=== PATIENT | male | born 1960 | race Caucasian/White ===

== ENCOUNTER 2016-12-23 13:18 | Observation (INO) | payer OTHER ==
[~2016-12-23] VITALS: Ht 162.6 cm; Wt 62.1 kg
[2016-12-23 13:19] VITALS: BP 113/86; PULSE 88; RESP 20; TEMP 98; O2SAT 98
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
[2016-12-23] MEDS ORDERED: MEDR4PAK PO (14:30)
[2016-12-23] MEDS ORDERED: KETOROLAC TROMETHAMINE 60 MG/2 ML (IM) VIAL IM ONE (14:30)
[2016-12-23] MEDS ORDERED: SODIUM CHLOR 0.9% 1000 ML INJ 1,000 ML IV ONE (14:45)
[2016-12-23] MEDS ORDERED: DEXAMETHASONE SOD PHOS 4 MG/ML VIAL IV PUSH ONE (14:45)
[2016-12-23] MEDS ORDERED: ONDANSETRON HCL 4 MG/2 ML VIAL IV PUSH ONE (14:45)
[2016-12-23] MEDS ORDERED: HYDROmorphone HCL PF 1 MG/ML VIAL IV PUSH ONE (14:45)
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
[2016-12-23] MEDS: SODIUM CHLOR 0.9% 1000 ML INJ 1,000 ML IV SCH (15:28)
[2016-12-23] MEDS ORDERED: NALOXONE HCL 0.4 MG/ML AMP IV PRN (15:30)
[2016-12-23] MEDS ORDERED: SODIUM CHLORIDE 0.9% FLUSH 5 ML FLUSH FLUSH PRN (15:30)
[2016-12-23 15:51] LABS: AUTOMATED NEUTROPHIL # 7.1 TH/MM3 (1.8-7.7); BASOPHIL # 0.1 TH/MM3 (0-0.2); BASOPHIL % 0.7 % (0.0-2.0); EOSINOPHIL # 0.2 TH/MM3 (0-0.4); EOSINOPHIL % 2.2 % (0.0-4.0); HEMATOCRIT 43.7 % (39.0-51.0); HEMO FLAGS DIFF FINAL; LYMPH % 26.8 % (9.0-44.0); MEAN CELL VOLUME 95.7 FL (80.0-100.0); MEAN CORPUSCULAR HEMOGLOBIN 32.5 PG (27.0-34.0); MEAN CORPUSCULAR HGB CONC 33.9 % (32.0-36.0); MONO % 7.9 % (0.0-8.0); NEUT % 62.4 % (16.0-70.0); PLATELET COUNT 221 TH/MM3 (150-450); RED BLOOD COUNT 4.56 MIL/MM3 (4.50-5.90); WHITE BLOOD COUNT 11.3 TH/MM3 (4.0-11.0)
[2016-12-23] MEDS ORDERED: oxyCODONE HCL 20 MG CONTROLLED RELEASE TAB PO ONE (16:00)
[2016-12-23 16:01] LABS: APTT (PATIENT) 30.1 SEC (24.3-30.1); INTERNATIONAL NORMALIZED RATIO 0.9 RATIO
--- NOTE | 2016-12-23 16:09 | RADRPT ---
EXAM DATE/TIME: 12/23/2016 15:23 [facility] COMPARISON: No previous studies available for comparison. INDICATIONS : Evaluate for pneumonia, pneumothorax or communicable disease. being admitted for back surgery. MEDICAL HISTORY : Chronic obstructive pulmonary disease. SURGICAL HISTORY : None. ENCOUNTER: Initial ACUITY: 1 day PAIN SCORE: 0/10 LOCATION: Bilateral chest FINDINGS: A single view of the chest demonstrates the lungs to be symmetrically aerated without evidence of mas s, infiltrate or effusion. The cardiomediastinal contours are unremarkable. Osseous structures are intact. CONCLUSION: No acute abnormality demonstrated. Eddi Chavez MD on December 23, 2016 at 16:07 Board Certified Radiologist. This report was verified electronically.
[2016-12-23 16:14] LABS: BICARBONATE 28.5 MEQ/L (21.0-32.0); POTASSIUM 4.5 MEQ/L (3.5-5.1)
[2016-12-23] MEDS ORDERED: PERC10TA27 PO (18:15)
[2016-12-23] MEDS ORDERED: OXYC20TA17 PO (18:15)
[2016-12-23 18:24] VITALS: BP 118/82
[2016-12-23] MEDS ORDERED: IPRA17I INH (18:32)
[2016-12-23] MEDS ORDERED: FLUT1INH7 INH (18:32)
[2016-12-23] MEDS ORDERED: UMEC1INH INH (18:32)
[2016-12-23] MEDS ORDERED: VENTAER INH (18:32)
[2016-12-23] MEDS ORDERED: BUSP10TA PO (18:32)
[2016-12-23 18:50] VITALS: BP 122/72; PULSE 78; RESP 16; TEMP 98.4; O2SAT 99
[2016-12-23 20:00] VITALS: BP 137/86; PULSE 71; RESP 18; TEMP 98.6; O2SAT 97
[2016-12-23] MEDS: oxyCODONE HCL 20 MG CONTROLLED RELEASE TAB PO SCH (20:15)
[2016-12-23] MEDS: HYDROmorphone HCL PF 1 MG/ML VIAL IV PUSH PRN (21:53)
[2016-12-23] MEDS: SODIUM CHLORIDE 0.9% FLUSH 5 ML FLUSH FLUSH SCH (21:54)
[2016-12-23] MEDS ORDERED: RESP: ALBUTEROL 2.5 MG/IPRATROPIUM 0.5 MG NEB (PRN) NEB (23:00)
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
[2016-12-23] MEDS: oxyCODONE/ACETAMINOPHEN 10 MG/325 MG TAB PO PRN (23:42)
[2016-12-24] VITALS: BP 106/61; PULSE 66; RESP 16; TEMP 97.9; O2SAT 96
[2016-12-24] MEDS: SODIUM CHLOR 0.9% 1000 ML INJ 1,000 ML IV SCH ×2 (01:30→08:30)
[2016-12-24] MEDS: HYDROmorphone HCL PF 1 MG/ML VIAL IV PUSH PRN ×5 (02:01→19:55)
[2016-12-24] MEDS: oxyCODONE/ACETAMINOPHEN 10 MG/325 MG TAB PO PRN ×4 (03:18→16:26)
[2016-12-24 04:00] VITALS: BP 113/70; PULSE 68; RESP 16; TEMP 97.4; O2SAT 94
[2016-12-24 07:56] LABS: AUTOMATED NEUTROPHIL # 10.6 TH/MM3 (1.8-7.7); BASOPHIL # 0.1 TH/MM3 (0-0.2); BASOPHIL % 0.4 % (0.0-2.0); HEMATOCRIT 39.8 % (39.0-51.0); HEMO FLAGS DIFF FINAL; LYMPH % 14.2 % (9.0-44.0); LYMPHOCYTE # 1.8 TH/MM3 (1.0-4.8); MEAN CELL VOLUME 94.7 FL (80.0-100.0); MEAN CORPUSCULAR HEMOGLOBIN 32.1 PG (27.0-34.0); MEAN CORPUSCULAR HGB CONC 33.9 % (32.0-36.0); MONO % 4.2 % (0.0-8.0); NEUT % 81.2 % (16.0-70.0); PLATELET COUNT 206 TH/MM3 (150-450); RED CELL DISTRIBUTION WIDTH 14.5 % (11.6-17.2)
[2016-12-24 08:00] VITALS: BP 110/63; PULSE 78; RESP 20; TEMP 97.7; O2SAT 94
[2016-12-24] MEDS: SODIUM CHLORIDE 0.9% FLUSH 5 ML FLUSH FLUSH SCH ×2 (08:25→19:54)
[2016-12-24] MEDS: oxyCODONE HCL 20 MG CONTROLLED RELEASE TAB PO SCH (08:26)
[2016-12-24] MEDS: DEXAMETHASONE SOD PHOS 4 MG/ML VIAL IV PUSH SCH ×2 (08:26→19:54)
[2016-12-24 08:40] LABS: BICARBONATE 24.9 MEQ/L (21.0-32.0); POTASSIUM 4.2 MEQ/L (3.5-5.1)
[2016-12-24] MEDS ORDERED: GADODIAMIDE PF 287 MG/ML 5 ML VIAL (for RAD MRI) IV ONE (09:39)
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
--- NOTE | 2016-12-24 10:10 | EKG ---
Date Performed: 12/23/2016 Time Performed: 14:44:15 PTAGE: 56 years EKG: Sinus rhythm POSSIBLE RIGHT VENTRICULAR CONDUCTION DELAY BORDERLINE ECG NO PREVIOUS TRACING DOCTOR: Drake Pickens Interpretating Date/Time 12/24/2016 10:08:09
--- NOTE | 2016-12-24 11:05 | HHI.PR ---
Subjective Remarks pt reports pain still severe in back and legs. no chnage in leg weakness. s/p MRI. good po intake, no CP or sob Objective Vital Signs Date Time Temp Pulse Resp B/P Pulse Ox O2 Delivery O2 Flow Rate FiO2 12/24/16 08:00 97.7 78 20 110/63 94 12/24/16 06:41 16 12/24/16 04:23 18 12/24/16 04:00 97.4 68 16 113/70 94 12/24/16 00:00 97.9 66 16 106/61 96 12/23/16 21:51 16 12/23/16 20:00 98.6 71 18 137/86 97 12/23/16 18:50 98.4 78 16 122/72 99 Room Air 12/23/16 18:24 78 16 118/82 99 12/23/16 13:19 98.0 88 20 113/86 98 Room Air I/O 12/23/16 12/23/16 12/23/16 12/24/16 12/24/16 12/24/16 07:00 15:00 23:00 07:00 15:00 23:00 Intake Total 1200 ml Balance 1200 ml Intake Oral 1200 ml # Voids 1 4 Result Diagram: 12/24/1661212/24/16612 Objective Remarks GENERAL: sitting up in bed. appears in pain. aaox3 SKIN: Warm and dry. HEAD: Normocephalic. EYES: No scleral icterus. No injection or drainage. NECK: Supple, trachea midline. No JVD CARDIOVASCULAR: Regular rate and rhythm without murmurs, gallops, or rubs. RESPIRATORY: Breath sounds equal bilaterally. No accessory muscle use. GASTROINTESTINAL: Abdomen soft, non-tender, nondistended. MUSCULOSKELETAL: No cyanosis, or edema. neuro- pt moves BL LE BACK: Nontender without obvious deformity. No CVA tenderness. A/P Assessment and Plan //Acute on chronic low back pain with symptoms of bilateral radiculopathy. -Narcotics for pain control. Dexamethasone scheduled. Appreciate neurosurgery assistance. 12/24 - f/u neurosurgery reccs. mri pending. incr dilaudid prn and oxycontin //leukocytosis - stress, steroids. no other indication of infection. cont to monitor //COPD. No acute issues. cont Duonebs as necessary. //Tobaccoism. Cessation advised //Prophylaxis. SCDs. As per surgical service. Discharge Planning cont pain control -pending neuro Benjie Gunter MD Dec 24, 2016 11:05
[2016-12-24 12:00] VITALS: BP 117/73; PULSE 72; RESP 20; TEMP 98.2; O2SAT 95
[2016-12-24 16:00] VITALS: BP 122/69; PULSE 55; RESP 18; TEMP 97.8; O2SAT 96
--- NOTE | 2016-12-24 16:15 | RADRPT ---
EXAM DATE/TIME: 12/24/2016 15:13 [facility] COMPARISON: No previous studies available for comparison. INDICATIONS : Assess instrumentation/fusion. RADIATION DOSE: 35.86 CTDIvol (mGy) MEDICAL HISTORY : Chronic obstructive pulmonary disease. SURGICAL HISTORY : Lumbar spine surgery. ENCOUNTER: Subsequent ACUITY: 1 week PAIN SCALE: 4/10 LOCATION: [facility] TECHNIQUE: Volumetric scanning of the lumbar spine was performed. Multiplanar reconstructions in the sagittal, coronal and oblique axial planes were performed. Using automated exposure control and adjustment of the mA and/or kV according to patient size, radiation dose was kept as low as reasonably achievable t o obtain optimal diagnostic quality images. FINDINGS: There are laminectomies and unroofing of the posterior elements at L2 and L3. There is focally advanc ed degenerative disc disease at L2-3 and moderate degenerative change at L3-4-5. Grade 1 retrolisthes is of L2 on L3 and L3 on L4 present. No acute fracture. At L1-2 there is a broad-based disc protrusion without significant central canal stenosis. At L2-3 there is posterior osteophytic ridging are resolving mild canal and foraminal stenosis bilate rally. At L3-4 there is an extruded disc fragment in the right lateral recess resulting in severe right late ral recess stenosis created At L4-5 there is a posterior disc osteophyte complex with left-sided neural foraminal stenosis. No si gnificant central canal stenosis. At L5-S1 there is a disc bulge without canal or foraminal stenosis. CONCLUSION: 1. Postop changes as above with unroofing of the posterior elements at L2 and L3. Grade 1 retrolisthe sis of L2 on L3 on L4. 2. Advanced degenerative disc disease L2-3 and moderate degenerative change at L3-4 and L4-5. 3. Extruded disc fragment effacing the right lateral recess at L3-4 with likely impingement on the nerve roots. Tremaine Sandy MD on December 24, 2016 at 16:06 Board Certified Radiologist. This report was verified electronically.
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
[2016-12-24] MEDS: oxyCODONE HCL 10 MG CONTROLLED RELEASE TAB PO SCH (19:55)
[2016-12-24 20:00] VITALS: BP 119/78; PULSE 63; RESP 17; TEMP 97.5; O2SAT 93
[2016-12-25] VITALS: BP 108/65; PULSE 64; RESP 18; TEMP 98.2; O2SAT 95
[2016-12-25] MEDS: oxyCODONE/ACETAMINOPHEN 10 MG/325 MG TAB PO PRN ×3 (01:12→09:37)
[2016-12-25] MEDS: HYDROmorphone HCL PF 1 MG/ML VIAL IV PUSH PRN ×3 (01:13→10:46)
[2016-12-25 04:00] VITALS: BP 119/69; PULSE 65; RESP 19; TEMP 98.2; O2SAT 95
[2016-12-25 08:00] VITALS: BP 120/73; PULSE 76; RESP 20; TEMP 96.4; O2SAT 97
[2016-12-25] MEDS: oxyCODONE HCL 10 MG CONTROLLED RELEASE TAB PO SCH (09:37)
[2016-12-25] MEDS: DEXAMETHASONE SOD PHOS 4 MG/ML VIAL IV PUSH SCH (09:38)
[2016-12-25] MEDS: SODIUM CHLORIDE 0.9% FLUSH 5 ML FLUSH FLUSH SCH (09:38)
[2016-12-25] MEDS ORDERED: OXYC20TA17 PO (10:27)
[2016-12-25] MEDS ORDERED: PERC10TA27 PO (10:27)
[2016-12-25] MEDS ORDERED: PANT40TA3 PO (10:27)
[2016-12-25] MEDS ORDERED: NAPR1TAB34 PO (10:27)
[2016-12-25] MEDS ORDERED: GABA100C4 PO (10:27)
[2016-12-25] MEDS ORDERED: GETGO ROLLING W1 MI1 (10:28)
[2016-12-25] MEDS ORDERED: PANTOPRAZOLE SOD 40 MG DELAYED RELEASE TAB PO ONE (10:30)
[2016-12-25] MEDS ORDERED: oxyCODONE HCL 10 MG CONTROLLED RELEASE TAB PO ONE (11:00)
[2016-12-25] MEDS ORDERED: GABAPENTIN 100 MG CAP PO SCH (13:00)
[2016-12-25] MEDS ORDERED: oxyCODONE HCL 10 MG CONTROLLED RELEASE TAB PO SCH (21:00)
[2016-12-26] MEDS ORDERED: PANTOPRAZOLE SOD 40 MG DELAYED RELEASE TAB PO SCH (09:00)
--- NOTE | 2017-01-02 18:36 | HHI.PR ---
Subjective Remarks date of service 12/25/16. Patient says he is feeling better. Denies any chest pain or shortness of breath. Imaging reviewed which does not show cervical spinal stenosis. Objective Objective Remarks GENERAL: sitting up in bed. appears in pain. aaox3. Exam unchanged from day prior. SKIN: Warm and dry. HEAD: Normocephalic. EYES: No scleral icterus. No injection or drainage. NECK: Supple, trachea midline. No JVD CARDIOVASCULAR: Regular rate and rhythm without murmurs, gallops, or rubs. RESPIRATORY: Breath sounds equal bilaterally. No accessory muscle use. GASTROINTESTINAL: Abdomen soft, non-tender, nondistended. MUSCULOSKELETAL: No cyanosis, or edema. neuro- pt moves BL LE BACK: Nontender without obvious deformity. No CVA tenderness. A/P Assessment and Plan //Acute on chronic low back pain with symptoms of bilateral radiculopathy. -Narcotics for pain control. Dexamethasone scheduled. Appreciate neurosurgery assistance. 12/24 - f/u neurosurgery reccs. mri pending. incr dilaudid prn and oxycontin -12/25. Discussed with neurosurgery. Imaging does not show spinal stenosis. Follow-up with neurosurgery as outpatient. //leukocytosis - stress, steroids. no other indication of infection. cont to monitor //COPD. No acute issues. cont Duonebs as necessary. //Tobaccoism. Cessation advised //Prophylaxis. SCDs. As per surgical service. Discharge Planning cont pain control -patient will follow up with neurosurgery as outpatient. Benjie Nichols MD Jan 02, 2017 18:36
[2017-02-16] MEDS ORDERED: ZANA4CAP PO (11:00)
[2017-02-16] MEDS ORDERED: GABA600T PO (11:00)
[2017-02-17] MEDS ORDERED: OXYC1TAB36 PO (09:36)
== END 2016-12-25 12:36 | disposition home or self-care (01) ==
LOC: NEPB 13:18 → NEDA 15:20 → HOCA 19:55
PROVIDERS: ADMIT Internal Medicine; ATTEND Internal Medicine
DX: M54.16 Radiculopathy, lumbar region (principal); J44.9 Chronic obstructive pulmonary disease, unspecified; D72.829 Elevated white blood cell count, unspecified; F17.200 Nicotine dependence, unspecified, uncomplicated; Z98.1 Arthrodesis status; Z88.5 Allergy status to narcotic agent
CPT/HCPCS: 71010; 72131; 72141; 72146; 72158; 80048; 85025; 85610; 85730; 86850; 86900; 86901; 93005; 96374; 96375; A9579; G0378; G8987-GP; G8988-GP; J1100; J1170; J2405; J7030

== ENCOUNTER 2016-12-27 15:22 | Emergency (ER) | payer OTHER ==
[~2016-12-27] VITALS: Ht 162.6 cm; Wt 62.0 kg
[~2016-12-27 15:22] MED LIST: BUSP10TA PO; FLUT1INH7 INH; GABA100C4 PO; GETGO ROLLING W1 MI1; IPRA17I INH; NAPR1TAB34 PO; OXYC20TA17 PO; PANT40TA3 PO; PERC10TA27 PO; UMEC1INH INH; VENTAER INH
[2016-12-27 15:29] VITALS: BP 141/85; PULSE 87; RESP 16; TEMP 98; O2SAT 98
[2016-12-27] MEDS ORDERED: HYDROmorphone HCL PF 1 MG/ML VIAL IV PUSH ONE (16:45)
[2016-12-27] MEDS ORDERED: KETOROLAC TROMETHAMINE 30 MG/ML (IVP) VIAL IV PUSH ONE (16:45)
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
[2016-12-27] MEDS ORDERED: HYDROmorphone HCL PF 1 MG/ML VIAL IM ONE (17:15)
[2016-12-27] MEDS ORDERED: KETOROLAC TROMETHAMINE 60 MG/2 ML (IM) VIAL IM ONE (17:15)
[2017-02-16] MEDS ORDERED: GABA600T PO (11:00)
[2017-02-16] MEDS ORDERED: ZANA4CAP PO (11:00)
[2017-02-17] MEDS ORDERED: OXYC1TAB36 PO (09:36)
== END 2016-12-27 17:27 | disposition home or self-care (01) ==
LOC: NEPC 15:22
DX: M54.5 Low back pain (principal); J44.9 Chronic obstructive pulmonary disease, unspecified; Z72.0 Tobacco use
CPT/HCPCS: 96372; 99283; J1170; J1885

== ENCOUNTER 2017-01-14 15:06 | Emergency (ER) | payer OTHER ==
[~2017-01-14] VITALS: Ht 157.5 cm; Wt 65.0 kg
[2017-01-14 15:07] VITALS: BP 115/81; PULSE 95; RESP 14; TEMP 97.9; O2SAT 93
--- NOTE | 2017-01-14 15:35 | PD ---
Physical Exam Date Seen by Provider: Jan 14, 2017 Time Seen by Provider: 15:28 Narrative Patient seen in triage with complaints of worsening low back pain with left sided sciatica. Patient is scheduled for surgery with Dr. Molina. Patient states pain 07/27. Patient recently discharged by his Pain clinic Doctor. Patient denies Bowel or bladder issues. denies worsening weakness in the left leg. Vital Signs Stable. Patient awaiting room placement. Data Data Last Documented VS Vital Signs Date Time Temp Pulse Resp B/P Pulse Ox O2 Delivery O2 Flow Rate FiO2 01/14/17 15:07 97.9 95 14 115/81 93 MDM Medical Record Reviewed: Yes Supervised Visit with DESTINEE: Yes Condition: Stable Richard Inman Jan 14, 2017 15:35
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
[2017-02-16] MEDS ORDERED: ZANA4CAP PO (11:00)
[2017-02-16] MEDS ORDERED: GABA600T PO (11:00)
[2017-02-17] MEDS ORDERED: OXYC1TAB36 PO (09:36)
== END 2017-01-14 17:56 | disposition home or self-care (01) ==
LOC: NETRI 15:06
DX: M54.5 Low back pain (principal)
CPT/HCPCS: 99282

== ENCOUNTER 2017-01-18 11:43 | Inpatient (IN) | payer OTHER ==
[~2017-01-18] VITALS: Ht 160 cm; Wt 65.3 kg
[~2017-01-18 11:43] MED LIST changes: -ADVA500A INH; -GABA600T PO; -IPRA17I INH; -OXYC1TAB36 PO; -PANT40TA3 PO; -PERC5TAB12 PO; -VENTAER INH; -WALKER WHEELS/F1 MIS; -ZANA4CAP PO
[2017-01-18] MEDS ORDERED: ADVA500A INH (11:59)
[2017-01-20] MEDS ORDERED: GELFOAM SIZE 100 ONE (07:26)
[2017-01-20] MEDS ORDERED: VANCOMYCIN HCL 1000 MG VIAL ONE (07:26)
[2017-01-20] MEDS ORDERED: ceFAZolin 2 GM PREMIX 50 ML ONE ×2 (07:26→13:14)
[2017-01-20] MEDS ORDERED: THROMBIN (TOPICAL) 5,000 UNIT VIAL ONE (07:26)
[2017-01-20] MEDS ORDERED: BUPIVACAINE/EPINEPHRINE 0.5% PF 30 ML VIAL ONE (07:26)
[2017-01-20] MEDS ORDERED: GENTAMICIN SULFATE 80 MG/2 ML VIAL ONE (07:27)
[2017-01-20] MEDS ORDERED: SODIUM CHLOR 0.9% 250 ML INJ 250 ML ONE (07:27)
[2017-01-20 07:30] VITALS: BP 113/77; PULSE 75; RESP 18; TEMP 98.3; O2SAT 97
[2017-01-20] MEDS ORDERED: VANCOMYCIN HCL 1000 MG ON-CALL/NS 250 ML IV SCH ×2 (07:30)
[2017-01-20] MEDS ORDERED: LACTATED RINGER'S 1000 ML IV PRN (07:30)
[2017-01-20] MEDS ORDERED: METOPROLOL TARTRATE 25 MG TAB PO PRN (07:30)
[2017-01-20] MEDS: SODIUM CHLOR 0.9% 1000 ML INJ 1,000 ML IV SCH (07:30)
[2017-01-20] MEDS ORDERED: SODIUM CHLORID 0.9% 500 ML IV PRN (07:30)
[2017-01-20] MEDS ORDERED: POVIDONE IODINE 5% (ANTISEPSIS KIT) 4 APPLICATIONS EACH NARE PRN (07:30)
[2017-01-20] MEDS ORDERED: INSULIN HUMAN REGULAR 1,000 UNITS/10 ML VIAL SQ PRN (07:30)
[2017-01-20] MEDS ORDERED: CHLORHEXIDINE GLUCONATE 2 % 1 PACK (2 CLOTHS) TOPICAL PRN (07:30)
[2017-01-20] MEDS ORDERED: DEXAMETHASONE SOD PHOS 4 MG/ML VIAL ONE (08:24)
[2017-01-20] MEDS ORDERED: MIDAZOLAM HCL 2 MG/2 ML VIAL ONE (08:24)
[2017-01-20] MEDS ORDERED: ACETAMINOPHEN 1000 MG/100 ML VIAL IV ONE (08:41)
[2017-01-20] MEDS ORDERED: ARTIFICIAL TEARS OPTH OINT 3.5 APPLIC/3.5 GM TUBO ONE (08:41)
[2017-01-20] MEDS ORDERED: fentaNYL CITRATE 250 MCG/5 ML AMP ONE ×2 (08:42→14:28)
[2017-01-20] MEDS ORDERED: ONDANSETRON HCL 4 MG/2 ML VIAL IV PUSH ONE (12:00)
[2017-01-20] MEDS ORDERED: PROPOFOL 200 MG/20 ML AMP IV ONE (12:00)
[2017-01-20] MEDS ORDERED: SODIUM CHLOR 0.9% 250 ML INJ 250 ML IV ONE (12:00)
[2017-01-20] MEDS ORDERED: ePHEDrine/NS 25 MG/5 ML SYR IV ONE (12:00)
[2017-01-20] MEDS ORDERED: PHENYLEPHRINE HCL 10 MG/ML VIAL IV ONE ×2 (12:00)
[2017-01-20] MEDS ORDERED: LACTATED RINGER'S 1000 ML INJ 2,000 ML IV ONE (12:00)
[2017-01-20] MEDS ORDERED: PHENYLEPH/NS 1000 MCG/10 ML SYR IV ONE (12:00)
[2017-01-20] MEDS: NS + KCL 20 MEQ INJ 1,000 ML IV SCH (14:55)
[2017-01-20] MEDS ORDERED: DO NOT ADM ANY ANTICOAGULANT DRUGS PRN (14:59)
[2017-01-20] MEDS: SODIUM CHLORIDE 0.9% FLUSH 5 ML FLUSH IVF SCH ×2 (15:00→20:52)
[2017-01-20] MEDS ORDERED: cloNIDine HCL 0.1 MG TAB PO/NG PRN (15:00)
[2017-01-20] MEDS: PANTOPRAZOLE SODIUM 40 MG VIAL IVP SCH (15:00)
[2017-01-20] MEDS ORDERED: ACETAMINOPHEN 325 MG TAB PO PRN (15:00)
[2017-01-20] MEDS: DOCUSATE SODIUM 100 MG CAP PO SCH ×2 (15:00→20:51)
[2017-01-20] MEDS ORDERED: MENTHOL LOZENGE BUCCAL PRN (15:00)
[2017-01-20] MEDS ORDERED: SODIUM CHLORIDE 0.9% FLUSH 5 ML FLUSH IVF PRN (15:00)
[2017-01-20] MEDS ORDERED: RESP: ALBUTEROL 2.5 MG/3 ML NEB (PRN) INH (15:00)
[2017-01-20] MEDS ORDERED: NALOXONE HCL 0.4 MG/ML AMP IV PRN (15:00)
[2017-01-20] MEDS ORDERED: ONDANSETRON HCL 4 MG/2 ML VIAL IV PRN (15:00)
[2017-01-20] MEDS ORDERED: *MEPERIDINE 25 MG INJ VIAL PERIprocedural Use ONLY ONE (15:21)
[2017-01-20] MEDS ORDERED: *HYDROmorphone PF 1 MG VIAL PERIprocedural Use ONLY ONE ×3 (15:32→16:08)
[2017-01-20] MEDS: HYDROmorphone HCL PCA 6 MG/30 ML IV SCH ×2 (15:59→22:23)
[2017-01-20] MEDS ORDERED: *hydrOXYzine 25 MG VIAL PERIprocedural Use ONLY IM ONE (16:18)
--- NOTE | 2017-01-20 17:07 | PD.OP ---
Operative Report Date of Surgery: Jan 20, 2017 Preoperative Diagnosis: post laminectomy spondylolisthesis Postoperative Diagnosis: post laminectomy spondylolisthesis Procedure: Redo L3-L4 laminectomy, interbody arthrodhesis using PEEK cage and autologous bone graft, L4-5 instrumental fixation using transpedicular screws and rods, L3- 4 posterolateral fusion using autologous bone graft and rods. Microsurgical dissection Surgeon: Darrick Molina Propellant Charge Loader(s): Carol Trujillo Operation and Findings: INDICATIONS FOR THE SURGICAL PROCEDURE Mr. Jacome is a 56-year-old man with a history of a prior L3-L4 bilateral laminectomy and discectomy, who developed chronic low back pain and spondylolisthesis at this level. He presented with intractable mechanical back pain and angella evidence of L4 bilateral lower extremity radiculopathy. He failed maximum nonsurgical management including multiple modalities of conservative treatment as well as pain management interventions by an interventional pain specialist. A surgical decompression and arthrodhesis were indicated as a last resource. The [id number] details of the procedure, indications, alternatives, risks and potential complications were fully discussed with him. He fully understood. All the questions were answered. No guarantees were given. The patient voiced requesting the procedure and provided informed consents. The patient was offered the alternative of delaying the procedure and continuing with nonsurgical management. DETAILS OF THE SURGICAL PROCEDURE Prior to the procedure, the surgical incision was marked in the preoperative surgical holding room, and the procedure, risks, and potential complications revisited with the patient. Placement of electrodes for intraoperative neurophysiological monitoring was completed. The patient was taken to the operative room, and following induction of general anesthesia, endotracheal intubation was performed. A Buchanan catheter, bilateral REGGIE hose and sequential compression devices were placed and kept throughout the procedure. The patient was positioned prone, over a Jericho table over a Celio frame. All pressure in the preoperative surgical holding room points were carefully padded with eggcrate and gel mattress. The eyes were tapped shut after ointment was applied by the anesthesiologist to prevent corneal abrasion. A Fei hugger was placed over the expossed lower body to maintain control of the core body temperature. The electrophysiological team placed the needles and electrodes in their proper location and baseline SSEP's and motor evoked potentials were registered. The lumbar region was prepped and draped in the usual sterile fashion. The surgical procedure was performed in several steps as follow: SURGICAL APPROACH Once the patient was positioned, a localizing cross-table lateral x-ray was performed with a C-arm. Two paramedian small incisions were outlined on the skin approximately 3cm from the midline. The skin incisions were made with a # 10 blade. Small bleeders were controlled with the cautery. The dissection was then carried out into deeper planes and through the thoracolumbar fascia with a Bovie. The intermuscular septum was identified and the muscles were blunted dissected along the septum. The facets and transverse process of L3-L4 were exposed and the proper anatomical landmarks were identified. A microsurgical self-retaining retractor was placed on the incision, and a localizing lateralizing cross-table x-ray was performed with an instrument underneath a lamina of the lumbar spine. INSTRUMENTAL FIXATION At this point in the procedure, placement of bilateral transpedicular screws was necessary for stabilization of the spine. Initially, the entry point for the screw was selected anatomically at the junction of the facet, with the transverse process, and the pars interarticularis at L3-L4. This was started with a Giamshetti needle, followed by the use of an lundberg wire, and then a tap was used to create the threads for the screws. Finally bilateral transpedicular screws were carefully placed bilaterally at L3-L4 under fluoroscopic visualization. An appropriate purchase was achieved with all screws. The position of each screw was assessed anatomically with an AP, lateral , oblique Xrays. An intraoperative scan view of the spine was then performed using the iso-centric c-arm. Each screw was then assessed electrophysiologically stimulating each screw with a nerve stimulator. SURGICAL DECOMPRESSION There was significant mass effect with compression of the neural structures. In order to relieve neural compression, it was necessary to perform a decompressive laminectomy, with decompression of the spinal canal and bilateral lateral recesses. Note that the scope of such decompression was significantly more extensive than the minimal exposure necessary to perform an interbody fusion, as there was extreme facet arthropathy with near complete collapse of the disk spaces and severe stenosis cause by the hyperthrophic joint facets. At this point of the procedure the operative microscope was draped in the usual sterile fashion and brought to the field. The rest of the surgical procedure was performed using microdissection technique with the exception of the closure. The patient had a prior bilateral laminectomy at L3-L4. The margins of the previous laminectomy were expossed. Under the operating microscope, a decompressive laminectomy was carried out at L4-L5 as follow: given the previous laminectomy and severe scaring which was very attached to the dural sac , it was necessary to further drill the facet to allow propper expossure of the disk. The remaining laminae, base of the spinous processes and facets were carefully drilled exposing the ligamentum flavum. The facets were abnormal with instability. A mild disk protusion was seen. A near complete facetectomy was necessary with further mechanical instability. On the left side, the dura was not defined, and appear diffusely intake dated the scar tissue without any clear plane of dissection. The scar tissue and ligament were very adherent to the dural sac and during the dissection extreme care was taken. during the dissection, a CSF leak was noted. Due to the lack of planes I suspect that the patient had a CSF leak using his initial surgery. The dura was closed in a water tight fashion usinf 6-0 Prolene suture. The closure was reinforced at the end of the procedure using DuraSeal. The exiting nerve roots were identified, and a foraminotomy was performed with a Kerrison in their trajectory towards the neural foramen. Epidural veins located laterally to the dural sac were coagulated with the bipolar cautery, and then incised using microscissors. Gentle medial retraction of the dural sac allowed me to expose the disc space for the discectomy. Upon completion of the discectomy, an excellent decompression of the neural structures was achieved. Increased motion was noted with mechanical instability. INTERBODY ARTHRODHESIS In order to correct the narrowing of the disk space and maintain distraction of the space, and to achieve a solid interbody fusion, it was necessary the insertion of an interbody device into the disk space. Otherwise, the disk space would collapse, compromising the result of the surgical procedure. At this point of the procedure, the annulus fibrosus of the disk was carefully coagulated with a bipolar cautery and incised using an 11 bladed knife. Then, a microdiscectomy was carried out in a standard fashion using a combination of straight and up-biting pituitary forceps. A reverse angle curette was applied underneath the posterior longitudinal ligament, and used to push the disk fragments into the disk space, so they can be safely removed with a pituitary forceps. Once the discectomy was completed, it was necessary to decorticate the endplates, in order to eliminate the cartilaginous endplate and to expose healthy bone appropriate to perform the interbody fusion. The endplates at L3 and L4 were then thoroughly decorticated using increasing size bone thu and ring curets, eliminating the cartilaginous fragments from both, the superior and inferior endplates. A disk space distractor was applied to the pedicle screws and gentle distraction was applied. This maneuver was assisted by the use of a disk distractor. Increased motility was noted at the disk, which was consistent with instability due to facet arthropathy. Once a thorough preparation of the disk space was achieved, the disk space was irrigated with antibiotic solution, and the interbody fusion was performed by carefully impacting an expandable PPEK cage filled with autologous iliac crest bone graft. The the cage was then deployed in an attempt to open the disc space and correct the listhesis . A solid position of the cage with good purchase was achieved. The position of the cages were assessed anatomically with a probe and radiologically with the C-arm. POSTEROLATERAL FUSION The posterolateral fusion is a critical component to the procedure, to prevent future fatigue and failure of the instrumental fixation. Initially, the transverse processes of the vertebral bodies, lateral surface of the facets and the lateral gutters of the spine were carefully cleaned, eliminating all soft tissue and muscle attachments. The area was then irrigated with a large amount of antibiotic solution. Subsequently, the transverse processes, lateral surface of the facets, and lateral gutters of the spine were thoroughly decorticated using the TPS drill with a 5mm cutting melanie, exposing cancellous bone, in preparation for the posterolateral fusion. The incision was again irrigated with antibiotic solution. Then, the posterolateral fusion was then performed by carefully packing the lateral gutters of the spine with autologous bone combined with demineralized bone matrix. I packed as much bone as possible. COMPLETION OF THE INSTRUMENTATION AND CLOSURE The rods were brought to the field, applied to all the screws, and the screw caps were sequentially applied. Compression was performed between the pedicle screws, and final tightening of the screws was completed using a torque wrench. A cross-link was used to connect the rods, in order to increase the stability of the construct. The cross link was secured using a torque wrench previously calibrated. The incision was again thoroughly irrigated with several liters of antibiotic solution, and hemostasis secured with the bipolar cautery. A Valsalva Maneuver performed by the anesthesiologist failed to show any evidence of cerebrospinal fluid leak or bleeding. A 7 mm Jericho-Humphrey drain was left in the epidural space and externalized through a separate stab incision. The incision was then closed in planes. 0 Vicryl was used in an interrupted fashion to close the thoracolumbar fascia and the superficial fascia. The subcutaneous tissue was then approximated using 3-0 Vicryl in an interrupted fashion. Special care was taken to avoid space. The skin was then closed with 4-0 Vicryl in a running, subcuticular fashion. Dermabond was applied to the skin. Each plane of closure was irrigated with antibiotic solution. At the end of the procedure the sponge, needle and instrument counts were all correct. Estimated blood loss was 350 cc. No blood transfusion was given. The entire procedure was performed using continuous electrophysiological monitoring of the somatosensorial evoked potentials and EMG. The patient received prophylactic antibiotics. The patient was then extubated and transferred to the recovery room in stable condition. Darrick Molina MD Jan 20, 2017 17:06
[2017-01-20] MEDS: GABAPENTIN 100 MG CAP PO SCH (17:54)
--- NOTE | 2017-01-20 17:57 | RADRPT ---
EXAM DATE/TIME: 01/20/2017 10:02 [facility] COMPARISON: No previous studies available for comparison. INDICATIONS : Fusion L3,L4 with screws and rods placement. MEDICAL HISTORY : Chronic obstructive pulmonary disease. SURGICAL HISTORY : Discectomy, lumbar. Laminectomy. Hernia. ENCOUNTER: Initial ACUITY: 1 day PAIN SCORE: Non-responsive. LOCATION: Lumbar spine. FINDINGS/CONCLUSION: The patient is status post fusion of L3 and L4 with plate and allograft . Allograft is slightly to the right in the disc space. Freddy Martin MD FACR on January 20, 2017 at 17:51 Board Certified Radiologist. This report was verified electronically.
[2017-01-20] MEDS: busPIRone HCL 10 MG TAB PO SCH (20:51)
[2017-01-20] MEDS: CYCLOBENZAPRINE HCL 10 MG TAB PO PRN (20:51)
[2017-01-20] MEDS: ceFAZolin 2 GM PREMIX 50 ML IV SCH (20:53)
[2017-01-20 21:00] VITALS: BP 111/68; PULSE 85; RESP 20; TEMP 98.7; O2SAT 96
[2017-01-20] MEDS: BUDESONIDE-FORMOTEROL 160/4.5 MCG INHALER INH SCH (21:00)
[2017-01-20] MEDS: PCA - TOTAL MG DILAUDID DELIVERED PER SHIFT SCH (22:00)
[2017-01-20] MEDS: oxyCODONE/ACETAMINOPHEN 10 MG/325 MG TAB PO PRN (22:21)
[2017-01-20] MEDS: ZOLPIDEM TARTRATE 5 MG TAB PO PRN (22:24)
[2017-01-21] VITALS (9 sets, daily range): BP systolic 103–122; BP diastolic 60–75; PULSE 82–92; RESP 18; TEMP 96.5–98.6; O2SAT 89–98
[2017-01-21] MEDS: NS + KCL 20 MEQ INJ 1,000 ML IV SCH ×3 (00:55→21:22)
[2017-01-21] MEDS: oxyCODONE/ACETAMINOPHEN 10 MG/325 MG TAB PO PRN ×5 (02:09→18:35)
[2017-01-21] MEDS: diphenhydrAMINE HCL 50 MG/ML VIAL IV PRN (02:10)
[2017-01-21] MEDS: ceFAZolin 2 GM PREMIX 50 ML IV SCH ×2 (04:39→12:34)
[2017-01-21] MEDS: CYCLOBENZAPRINE HCL 10 MG TAB PO PRN ×2 (04:42→21:10)
[2017-01-21] MEDS: PCA - TOTAL MG DILAUDID DELIVERED PER SHIFT SCH ×3 (06:00→19:11)
[2017-01-21] MEDS: HYDROmorphone HCL PCA 6 MG/30 ML IV SCH ×4 (06:13→22:44)
[2017-01-21 07:14] LABS: AUTOMATED NEUTROPHIL # 12.2 TH/MM3 (1.8-7.7); BASOPHIL % 0.3 % (0.0-2.0); EOSINOPHIL % 0.1 % (0.0-4.0); HEMATOCRIT 34.9 % (39.0-51.0); HEMO FLAGS DIFF FINAL; LYMPH % 15.9 % (9.0-44.0); LYMPHOCYTE # 2.6 TH/MM3 (1.0-4.8); MEAN CELL VOLUME 95.1 FL (80.0-100.0); MEAN CORPUSCULAR HEMOGLOBIN 31.8 PG (27.0-34.0); MEAN CORPUSCULAR HGB CONC 33.4 % (32.0-36.0); MONO % 8.1 % (0.0-8.0); NEUT % 75.6 % (16.0-70.0); PLATELET COUNT 211 TH/MM3 (150-450); RED BLOOD COUNT 3.67 MIL/MM3 (4.50-5.90); RED CELL DISTRIBUTION WIDTH 14.5 % (11.6-17.2); WHITE BLOOD COUNT 16.1 TH/MM3 (4.0-11.0)
[2017-01-21] MEDS: SODIUM CHLOR 0.9% 1000 ML INJ 1,000 ML IV SCH (07:30)
[2017-01-21 07:49] LABS: BICARBONATE 27.5 MEQ/L (21.0-32.0); POTASSIUM 4.1 MEQ/L (3.5-5.1)
[2017-01-21] MEDS: BUDESONIDE-FORMOTEROL 160/4.5 MCG INHALER INH SCH ×2 (08:49→21:00)
[2017-01-21] MEDS: FLUTICASONE 100 MCG/VILANTEROL 25 MCG INHALER INH SCH (08:49)
[2017-01-21] MEDS: SODIUM CHLORIDE 0.9% FLUSH 5 ML FLUSH IVF SCH ×2 (08:49→21:00)
[2017-01-21] MEDS: DOCUSATE SODIUM 100 MG CAP PO SCH ×2 (08:50→21:10)
[2017-01-21] MEDS: busPIRone HCL 10 MG TAB PO SCH ×2 (08:50→21:10)
[2017-01-21] MEDS: GABAPENTIN 100 MG CAP PO SCH ×3 (08:51→17:16)
[2017-01-21] MEDS: PANTOPRAZOLE SODIUM 40 MG VIAL IVP SCH (08:51)
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
--- NOTE | 2017-01-21 16:02 | HHI.NSPN ---
(Karime Limon) Note Status Status: Progress Note (Karime Limon) Interval History Interval History Mr. Jacome is a 56 year old male who underwent a redo L3-L4 laminectomy, interbody arthrodesis using PEEK cage and autologous bone graft, instrumental fixation using transpedicular screws and rods on Jan 20, 2017. 01/21: patient seen this am during rounds, POD 1, patient remains in bed rest. He c/o of severe surgical pain, feeling of tightness in his legs. Movement limited secondary to his pain. He is using his Dilauded ANESTHESIA ASSOCIATE as well as oral Percocet prn. He denies chest pain, difficulty breathing. (Karime Limon) Labs, Micro, & Vital Signs Results Date Time Temp Pulse Resp B/P Pulse Ox O2 Delivery O2 Flow Rate FiO2 01/21/17 15:33 18 01/21/17 15:19 97 Nasal Cannula 4.00 01/21/17 14:00 18 01/21/17 12:08 96 Nasal Cannula 4.00 01/21/17 12:00 98.1 87 18 103/60 97 01/21/17 11:05 18 01/21/17 10:49 18 01/21/17 08:58 96 01/21/17 08:00 98.6 89 18 112/67 89 01/21/17 08:00 98.6 89 18 112/67 97 01/21/17 06:13 18 01/21/17 06:00 18 01/21/17 04:00 98.0 91 18 109/75 98 01/21/17 04:00 98.0 91 18 109/75 98 01/21/17 04:00 98.0 87 18 109/75 91 01/21/17 03:50 18 01/21/17 00:00 97.1 82 18 122/71 97 01/20/17 22:23 20 01/20/17 22:00 20 01/20/17 21:00 98.7 85 20 111/68 96 01/20/17 16:56 92 18 110/78 94 Nasal Cannula 4 01/20/17 15:59 19 01/21/17 07:00 Intake Total 4437 ml Output Total 5560 ml Balance -1123 ml Constitutional Vital Signs Date Time Temp Pulse Resp B/P Pulse Ox O2 Delivery O2 Flow Rate FiO2 01/21/17 15:33 18 01/21/17 15:19 97 Nasal Cannula 4.00 01/21/17 14:00 18 01/21/17 12:08 96 Nasal Cannula 4.00 01/21/17 12:00 98.1 87 18 103/60 97 01/21/17 11:05 18 01/21/17 10:49 18 01/21/17 08:58 96 01/21/17 08:00 98.6 89 18 112/67 89 01/21/17 08:00 98.6 89 18 112/67 97 01/21/17 06:13 18 01/21/17 06:00 18 01/21/17 04:00 98.0 91 18 109/75 98 01/21/17 04:00 98.0 91 18 109/75 98 01/21/17 04:00 98.0 87 18 109/75 91 01/21/17 03:50 18 01/21/17 00:00 97.1 82 18 122/71 97 01/20/17 22:23 20 01/20/17 22:00 20 01/20/17 21:00 98.7 85 20 111/68 96 01/20/17 16:56 92 18 110/78 94 Nasal Cannula 4 01/20/17 15:59 19 01/21/17 07:00 Intake Total 4437 ml Output Total 5560 ml Balance -1123 ml (Karime Limon) Review of Systems/Exam Exam Mr. Jacome is awake and oriented to time, place and person. Speech is fluent. Appears uncomfortable due to pain. Cranial nerve examination: pupils to be equal, round and reactive to light. Extra-ocular movements are intact. Facial motor are normal and symmetrical. Neck is soft and supple Motor: moves upper extremities well, gross 2/5 movements in LE's limited due to severity of his surgical pain Sensory examination: reports grossly intact light touch in LE's (Karime Limon) Medications Current Medications Current Medications Medications (Trade) Dose Ordered Sig/Bassam Route PRN Reason Start Time Stop Time Status Last Admin Dose Admin Sodium Chloride 1,000 ml @ 30 mls/hr Q24H IV 01/20/17 07:30 Lactated Ringer's 1,000 ml @ 0 mls/hr Q0M PRN IV SEE LABEL COMMENTS 01/20/17 07:30 01/23/17 07:29 Sodium Chloride 500 ml @ 30 mls/hr [id number] PRN IV SEE LABEL COMMENTS 01/20/17 07:30 01/23/17 07:29 Potassium Chloride/Sodium Chloride (NS + KCl 20 Meq Inj) 1,000 ml @ 100 mls/hr Q10H IV 01/20/17 14:55 01/21/17 10:06 IV Flush (NS Flush) 2 ml UNSCH PRN IVF FLUSH AFTER USING IV ACCESS 01/20/17 15:00 IV Flush (NS Flush) 2 ml BID IVF 01/20/17 15:00 01/20/17 20:52 Docusate Sodium (Colace) 100 mg BID PO 01/20/17 15:00 01/21/17 08:50 Magnesium Hydroxide (Milk Of Magnesia Liq) 30 ml DAILY PRN PO CONSTIPATION 01/20/17 15:00 Pantoprazole Sodium (Protonix Inj) 40 mg DAILY IVP 01/20/17 15:00 01/21/17 08:51 Ondansetron HCl (Zofran Inj) 4 mg Q6H PRN IV NAUSEA OR VOMITING 01/20/17 15:00 Cyclobenzaprine HCl (Flexeril) 10 mg Q8H PRN PO MUSCLE SPASM 01/20/17 15:00 01/21/17 04:42 Clonidine (Catapres) 0.1 mg Q6H PRN PO/NG SYS BP GREATER THAN 170 MMHG 01/20/17 15:00 Acetaminophen (Tylenol) 650 mg Q4H PRN PO TEMPERATURE > 101.5 F 01/20/17 15:00 Menthol ([place] Jason) 1 lozenge UNSCH PRN BUCCAL SORE THROAT 01/20/17 15:00 Zolpidem Tartrate (Ambien) 5 mg HS PRN PO INSOMNIA 01/20/17 15:00 01/20/17 22:24 Naloxone HCl (Narcan Inj) 0.4 mg UNSCH PRN IV RESPIRATORY RATE LESS THAN 10 01/20/17 15:00 Diphenhydramine HCl (Benadryl Inj) 25 mg Q6H PRN IV ITCHING 01/20/17 15:00 01/21/17 02:10 Hydromorphone HCl (Dilaudid ANESTHESIA ASSOCIATE Inj) 6 mg UNSCH IV 01/20/17 15:00 01/21/17 15:33 ANESTHESIA ASSOCIATE Dosage Infused (Pha) 1 Q8HR .XX 01/20/17 15:00 01/21/17 14:00 Buspirone HCl (Buspar) 10 mg BID PO 01/20/17 21:00 01/21/17 08:50 Gabapentin (Neurontin) 100 mg TID PO 01/20/17 18:00 01/21/17 12:33 Budesonide/ Formoterol Fumarate (Symbicort 160-4.5 Inh) 2 puff BID INH 01/20/17 21:00 01/21/17 08:49 Fluticasone/ Vilanterol (Breo Ellipta 100-25 Inh) 1 puff DAILY INH 01/21/17 09:00 01/21/17 08:49 Oxycodone/ Acetaminophen (Percocet 10-325 Mg) 1 tab Q4H PRN PO PAIN SCALE 1 TO 10 01/20/17 21:45 01/21/17 14:45 Enoxaparin Sodium (Lovenox Inj) 40 mg Q24H SQ 01/22/17 09:00 (Karime Limon) Medical Decision Making MDM Remarks 56 y/o male s/p L3-L4 PLIF 01/20/17, POD 1 (Karime Limon) Plan Plan Remarks cont strict bed rest, HOB no greater than 20 degrees, log rolls every 2 hours cont ANESTHESIA ASSOCIATE for pain control and oral pain medications prn IS every hour SCDs and TEDs for DVT porphylaxis, and will start lovenox tomorrow protonix for stress ulcer prophylaxis medical consultation for assistance appreciated (Karime Limon) Attending Statement The exam, history, and the medical decision-making described in the above note were completed with the assistance of the mid-level provider. I reviewed and agree with the findings presented. I attest that I had a [id number] encounter with the patient on the same day, and personally performed and documented my assessment and findings in the medical record. (Darrick Molina MD) Karime Limon Jan 21, 2017 16:02 Darrick Molina MD Jan 24, 2017 09:08
[2017-01-21] MEDS: ZOLPIDEM TARTRATE 5 MG TAB PO PRN (21:10)
[2017-01-22] VITALS (8 sets, daily range): BP systolic 125–142; BP diastolic 76–86; PULSE 90–102; RESP 18–22; TEMP 95.7–99.2; O2SAT 94–100
[2017-01-22] MEDS: diphenhydrAMINE HCL 50 MG/ML VIAL IV PRN (02:38)
[2017-01-22] MEDS: oxyCODONE/ACETAMINOPHEN 10 MG/325 MG TAB PO PRN ×5 (02:38→20:39)
[2017-01-22] MEDS: CYCLOBENZAPRINE HCL 10 MG TAB PO PRN ×3 (05:28→20:39)
[2017-01-22] MEDS: NS + KCL 20 MEQ INJ 1,000 ML IV SCH ×3 (05:29→20:40)
[2017-01-22] MEDS: SODIUM CHLOR 0.9% 1000 ML INJ 1,000 ML IV SCH (05:29)
[2017-01-22] MEDS: PCA - TOTAL MG DILAUDID DELIVERED PER SHIFT SCH ×3 (05:30→22:00)
[2017-01-22] MEDS: HYDROmorphone HCL PCA 6 MG/30 ML IV SCH ×2 (06:36→13:13)
[2017-01-22] MEDS ORDERED: KETOROLAC TROMETHAMINE 60 MG/2 ML (IM) VIAL IM ONE (07:30)
[2017-01-22] MEDS: SODIUM CHLORIDE 0.9% FLUSH 5 ML FLUSH IVF SCH ×2 (09:00→20:39)
[2017-01-22] MEDS: busPIRone HCL 10 MG TAB PO SCH ×2 (09:06→20:39)
[2017-01-22] MEDS: GABAPENTIN 300 MG CAP PO SCH ×3 (09:07→16:23)
[2017-01-22] MEDS: ENOXAPARIN SODIUM 40 MG/0.4 ML SYRINGE SQ SCH (09:07)
[2017-01-22] MEDS: DOCUSATE SODIUM 100 MG CAP PO SCH ×2 (09:08→20:39)
[2017-01-22] MEDS: PANTOPRAZOLE SODIUM 40 MG VIAL IVP SCH (09:10)
[2017-01-22] MEDS: BUDESONIDE-FORMOTEROL 160/4.5 MCG INHALER INH SCH ×2 (09:10→20:39)
[2017-01-22] MEDS: FLUTICASONE 100 MCG/VILANTEROL 25 MCG INHALER INH SCH (09:12)
--- NOTE | 2017-01-22 09:50 | HHI.PR ---
Subjective Remarks states some back discomfort- - using INDUSTRIAL MAINTENANCE MILLWRIGHT pump with relief no nausea or vomiting Objective Vitals Vital Signs Date Time Temp Pulse Resp B/P Pulse Ox O2 Delivery O2 Flow Rate FiO2 01/22/17 08:00 97.7 92 18 140/76 96 01/22/17 06:36 20 01/22/17 05:34 97.9 94 22 131/86 95 01/22/17 05:30 18 01/22/17 04:24 18 01/22/17 00:00 96.1 93 18 127/76 96 01/21/17 22:44 18 01/21/17 20:00 96.5 92 18 114/65 97 01/21/17 19:11 18 01/21/17 16:57 18 01/21/17 16:00 97.8 92 18 104/65 96 01/21/17 15:33 18 01/21/17 15:19 97 Nasal Cannula 4.00 01/21/17 14:00 18 01/21/17 12:08 96 Nasal Cannula 4.00 01/21/17 12:00 98.1 87 18 103/60 97 01/21/17 10:49 18 I/O 01/21/17 01/21/17 01/21/17 01/22/17 01/22/17 01/22/17 07:00 15:00 23:00 07:00 15:00 23:00 Intake Total 1437 ml Output Total 3300 ml 700 ml 2300 ml Balance -1863 ml -700 ml -2300 ml IV Total 1437 ml Output Urine Total 3300 ml 700 ml 2300 ml Result Diagram: 01/21/17 0647 01/21/17 0647 Objective Remarks awake and alert, NAD anciteric lungs- no rales or wheezes regular rhythm abdomen soft, good bowel sounds extremities no edema- sensory intact, moves legs equally Procedures 01/21- L3-L4 laminectomy Urinary Catheter: Yes [place] insert reason: Surgical/Invasive Proced Date of Insertion: Jan 21, 2017 A/P Assessment and Plan 56-year-old male with status post L3-L4 decompressive laminectomy 01/20 for chronic back pain on INDUSTRIAL MAINTENANCE MILLWRIGHT pump for pain control Activity and PT orders per neurosurgery service COPD continued on metered-dose inhalers Leukocytosis on lab- afebrile. He does not recall being maintained on any steroids. He did recall that he got steroids shot months ago but in unsure. did get x 1 Dexamethasone IV this am during surgery. check CBC Smoker patient counseled. Incentive spirometry Depression continue on BuSpar twice a day Penny Christina MD Jan 22, 2017 09:50
--- NOTE | 2017-01-22 10:04 | HHI.NSPN ---
(Karime Limon) Note Status Status: Progress Note (Karime Limon) Interval History Interval History Mr. Jacome is a 56 year old male who underwent a redo L3-L4 laminectomy, with interbody arthrodesis using PEEK cage autologous bone graft, instrumental fixation using transpedicular screws and rods on Jan 20, 2017. 01/21: patient seen this am during rounds, POD 1, patient remains in bed rest. He c/o of severe surgical pain, feeling of tightness in his legs. Movement limited secondary to his pain. He is using his Dilauded IMPREGNATOR as well as oral Percocet prn. He denies chest pain, difficulty breathing. 01/22: POD 2, continues to report of severe surgical pain and achiness into the left thigh, able to move LE's but says is limited due to his pain. (Karime Limon) Labs, Micro, & Vital Signs Results Date Time Temp Pulse Resp B/P Pulse Ox O2 Delivery O2 Flow Rate FiO2 01/22/17 08:00 97.7 92 18 140/76 96 01/22/17 06:36 20 01/22/17 05:34 97.9 94 22 131/86 95 01/22/17 05:30 18 01/22/17 04:24 18 01/22/17 00:00 96.1 93 18 127/76 96 01/21/17 22:44 18 01/21/17 20:00 96.5 92 18 114/65 97 01/21/17 19:11 18 01/21/17 16:57 18 01/21/17 16:00 97.8 92 18 104/65 96 01/21/17 15:33 18 01/21/17 15:19 97 Nasal Cannula 4.00 01/21/17 14:00 18 01/21/17 12:08 96 Nasal Cannula 4.00 01/21/17 12:00 98.1 87 18 103/60 97 01/21/17 10:49 18 01/22/17 07:00 Output Total 3000 ml Balance -3000 ml Constitutional Vital Signs Date Time Temp Pulse Resp B/P Pulse Ox O2 Delivery O2 Flow Rate FiO2 01/22/17 08:00 97.7 92 18 140/76 96 01/22/17 06:36 20 01/22/17 05:34 97.9 94 22 131/86 95 01/22/17 05:30 18 01/22/17 04:24 18 01/22/17 00:00 96.1 93 18 127/76 96 01/21/17 22:44 18 01/21/17 20:00 96.5 92 18 114/65 97 01/21/17 19:11 18 01/21/17 16:57 18 01/21/17 16:00 97.8 92 18 104/65 96 01/21/17 15:33 18 01/21/17 15:19 97 Nasal Cannula 4.00 01/21/17 14:00 18 01/21/17 12:08 96 Nasal Cannula 4.00 01/21/17 12:00 98.1 87 18 103/60 97 01/21/17 10:49 18 01/22/17 07:00 Output Total 3000 ml Balance -3000 ml (Karime Limon) Review of Systems/Exam Exam Mr. Jacome is awake and oriented to time, place and person. Speech is fluent. Cranial nerve examination: pupils equal, round and reactive to light. Facial motor are normal and symmetrical. Neck is soft and supple Motor: moves upper extremities well, gross 3/5 movements in LE's which is limited due to severity of his surgical pain Sensory examination: reports grossly intact light touch in LE's Plantars downgoing b/l, no ankle clonus Wound reported clean and dry. (Karime Limon) Medical Decision Making MDM Remarks 56 y/o male s/p L3-L4 PLIF 01/20/17, POD 1 (Karime Limno) Plan Plan Remarks cont strict bed rest today, HOB no greater than 20 degrees, log rolls every 2 hours clear to start OOB tomorrow with TLSO brace on, PT consulted for tomorrow cont pain cotrol with IMPREGNATOR and oral pain medications prn cont IS every hour SCDs and TEDs for DVT porphylaxis, start lovenox today protonix for stress ulcer prophylaxis medical mgt appreciated (Karime Limon) Attending Statement The exam, history, and the medical decision-making described in the above note were completed with the assistance of the mid-level provider. I reviewed and agree with the findings presented. I attest that I had a [id number] encounter with the patient on the same day, and personally performed and documented my assessment and findings in the medical record. (Darrick Molina MD) Karime Limon Jan 22, 2017 10:04 Darrick Molina MD Jan 22, 2017 18:23
[2017-01-22 12:04] LABS: HEMATOCRIT 35.1 % (39.0-51.0); MEAN CELL VOLUME 96.2 FL (80.0-100.0); MEAN CORPUSCULAR HEMOGLOBIN 32.4 PG (27.0-34.0); MEAN CORPUSCULAR HGB CONC 33.6 % (32.0-36.0); PLATELET COUNT 180 TH/MM3 (150-450); RED BLOOD COUNT 3.65 MIL/MM3 (4.50-5.90); RED CELL DISTRIBUTION WIDTH 14.3 % (11.6-17.2); REVIEW FLAG FINAL; WHITE BLOOD COUNT 11.8 TH/MM3 (4.0-11.0)
[2017-01-23] VITALS: BP 107/68; PULSE 97; RESP 20; TEMP 97.4; O2SAT 97
[2017-01-23] MEDS: HYDROmorphone HCL PCA 6 MG/30 ML IV SCH ×2 (01:03→09:34)
[2017-01-23] MEDS: oxyCODONE/ACETAMINOPHEN 10 MG/325 MG TAB PO PRN ×6 (01:06→23:02)
[2017-01-23 04:00] VITALS: BP 118/73; PULSE 96; RESP 20; TEMP 97.5; O2SAT 96
[2017-01-23] MEDS: PCA - TOTAL MG DILAUDID DELIVERED PER SHIFT SCH ×3 (06:00→22:00)
[2017-01-23 08:00] VITALS: BP 127/76; PULSE 91; RESP 18; TEMP 98; O2SAT 97
[2017-01-23] MEDS: BUDESONIDE-FORMOTEROL 160/4.5 MCG INHALER INH SCH ×2 (09:00→21:43)
[2017-01-23] MEDS: FLUTICASONE 100 MCG/VILANTEROL 25 MCG INHALER INH SCH (09:00)
[2017-01-23] MEDS: GABAPENTIN 300 MG CAP PO SCH ×3 (09:30→18:00)
[2017-01-23] MEDS: ENOXAPARIN SODIUM 40 MG/0.4 ML SYRINGE SQ SCH (09:31)
[2017-01-23] MEDS: PANTOPRAZOLE SOD 40 MG DELAYED RELEASE TAB PO SCH (09:31)
[2017-01-23] MEDS: DOCUSATE SODIUM 100 MG CAP PO SCH ×2 (09:31→21:37)
[2017-01-23] MEDS: busPIRone HCL 10 MG TAB PO SCH ×2 (09:31→21:37)
[2017-01-23] MEDS: MAGNESIUM HYDROXIDE SUSP 30 ML CUP PO PRN (11:43)
[2017-01-23] MEDS: NS + KCL 20 MEQ INJ 1,000 ML IV SCH ×2 (11:45→21:41)
[2017-01-23 12:00] VITALS: BP 148/93; PULSE 94; RESP 20; TEMP 96.6; O2SAT 98
[2017-01-23 16:00] VITALS: BP 117/86; PULSE 91; RESP 20; TEMP 97.7; O2SAT 97
[2017-01-23] MEDS ORDERED: oxyCODONE/ACETAMINOPHEN 10 MG/325 MG TAB PO SCH (16:00)
--- NOTE | 2017-01-23 17:17 | HHI.PR ---
Subjective Remarks Patient remains in pain and reports he is not yet ready for OOB or PT. He requests returning to PO Oxycodone for his pain control rather than IV Dilaudid. Neurosurgery is following also. Objective Vital Signs Date Time Temp Pulse Resp B/P Pulse Ox O2 Delivery O2 Flow Rate FiO2 01/23/17 12:00 96.6 94 20 148/93 98 01/23/17 09:34 18 01/23/17 08:00 98.0 91 18 127/76 97 01/23/17 06:00 18 01/23/17 04:00 97.5 96 20 118/73 96 01/23/17 01:33 16 01/23/17 01:03 16 01/23/17 00:00 97.4 97 20 107/68 97 01/22/17 22:00 16 01/22/17 20:03 Nasal Cannula 4.00 01/22/17 20:00 97.4 102 20 131/83 94 I/O 01/22/17 01/22/17 01/22/17 01/23/17 01/23/17 01/23/17 07:00 15:00 23:00 07:00 15:00 23:00 Intake Total 9 ml 840 ml 120 ml Output Total 2300 ml 1400 ml 700 ml 650 ml Balance -2300 ml -1391 ml 140 ml -530 ml Intake Oral 240 ml 120 ml IV Total 600 ml Other 9 ml Output Urine Total 2300 ml 1400 ml 700 ml 650 ml # Bowel Movements 0 0 Result Diagram: 01/22/17 1146 01/21/17 0647 Imaging Last Impressions Lumbar Spine X-Ray 01/20/17 0000 Signed Impressions: Service Date/Time: Friday, January 20, 2017 10:02 - CONCLUSION: The patient is status post fusion of L3 and L4 with plate and allograft. Allograft is slightly to the right in the disc space. Freddy Martin MD FACR Objective Remarks GENERAL: NAD, AOx3 SKIN: Warm and dry. HEAD: Atraumatic. Normocephalic. EYES: Pupils equal and round. No scleral icterus. No injection or drainage. ENT: No nasal bleeding or discharge. Mucous membranes pink and moist. NECK: Trachea midline. No JVD. CARDIOVASCULAR: Regular rate and rhythm. RESPIRATORY: No accessory muscle use. Clear to auscultation. Breath sounds equal bilaterally. GASTROINTESTINAL: Abdomen soft, non-tender, nondistended. Hepatic and splenic margins not palpable. MUSCULOSKELETAL: Extremities without clubbing, cyanosis, or edema. No obvious deformities. Spine is appropriately stiff and patient is guarding with movements , post laminectomy L3-4 NEUROLOGICAL: Awake and alert. No obvious cranial nerve deficits. Motor grossly within normal limits. Five out of 5 muscle strength in the arms and legs. Normal speech. PSYCHIATRIC: Appropriate mood and affect; insight and judgment normal. Medications and IVs Current Medications Sodium Chloride 1,000 ml @ 30 mls/hr Q24H IV ; Start 01/20/17 at 07:30 Vancomycin HCl 1000 mg/Sodium Chloride 250 ml @ 250 mls/hr E/M ENGINEER IV Last administered on 01/20/17t 08:01; Start 01/20/17 at 07:30; Stop 01/23/17 at 07:29; Status DC Lactated Ringer's 1,000 ml @ 0 mls/hr Q0M PRN IV SEE LABEL COMMENTS; Start 01/20 at 07:30; Stop 01/23/17 at 07:29; Status DC Sodium Chloride (NS 500 ml Inj) 500 ml @ 30 mls/hr [id number] PRN IV SEE LABEL COMMENTS; Start 01/20/17 at 07:30; Stop 01/23/17 at 07:29; Status DC Metoprolol Tartrate (Lopressor) 25 mg E/M ENGINEER PRN PO SEE LABEL COMMENTS; Start 01/20/17 at 07:30; Stop 01/23/17 at 07:29; Status DC Povidone Iodine (Betadine 5% Antisepsis Kit) 1 applic E/M ENGINEER PRN EACH NARE SEE LABEL COMMENTS; Start 01/20/17 at 07:30; Stop 01/23/17 at 07:29; Status DC Chlorhexidine Gluconate (Chlorhexidine 2% Cloth) 3 pack E/M ENGINEER PRN TOPICAL SEE LABEL COMMENTS; Start 01/20/17 at 07:30; Stop 01/23/17 at 07:29; Status DC Insulin Human Regular (NovoLIN R INJ) See Protocol Table ... E/M ENGINEER PRN SQ SEE PROTOCOL TABLE; Start 01/20/17 at 07:30; Stop 01/23/17 at 07:29; Status DC Vancomycin HCl (Vancomycin Inj) 1,000 mg STK-MED ONCE .ROUTE ; Start 01/20/17 at 07:26; Stop 01/20/17 at 07:27; Status DC Thrombin 28630 units 10,000 units STK-MED ONCE .ROUTE Last administered on 10:07; Start 01/20/17 at 07:26; Stop 01/20/17 at 07:27; Status DC Cefazolin Sodium/ Dextrose (Ancef 2 Gm Premix) 50 ml @ As Directed STK-MED ONCE .ROUTE Last administered on 01/20/17 09:34; Start 01/20/17 at 07:26; Stop at 07:27; Status DC Bupivacaine HCl/ Epinephrine Bitart (Sensorcaine-Epinephrine Pf 0.5% Inj) 30 ml STK-MED ONCE .ROUTE ; Start 01/20/17 at 07:26; Stop 01/20/17 at 07:27; Status DC Gelatin (Gelfoam 100 Top) 1 foam STK-MED ONCE .ROUTE Last administered on 10:07; Start 01/20/17 at 07:26; Stop 01/20/17 at 07:27; Status DC Gentamicin Sulfate 240 mg 240 mg STK-MED ONCE .ROUTE Last administered on 10:07; Start 01/20/17 at 07:27; Stop 01/20/17 at 07:28; Status DC Sodium Chloride (NS 250 ml Inj) 250 ml @ As Directed STK-MED ONCE .ROUTE ; Start 01/20/17 at 07:27; Stop 01/20/17 at 07:28; Status DC Midazolam HCl (Versed Inj) 2 mg STK-MED ONCE .ROUTE Last administered on 08:25; Start 01/20/17 at 08:24; Stop 01/20/17 at 08:25; Status DC Dexamethasone Sodium Phosphate (Decadron Inj) 4 mg STK-MED ONCE .ROUTE Last administered on 01/20/17 08:26; Start 01/20/17 at 08:24; Stop 01/20/17 at 08:25; Status DC Acetaminophen (Ofirmev Inj) 1,000 mg STK-MED ONCE IV ; Start 01/20/17 at 08:41; Stop 01/20/17 at 08:42; Status DC Artificial Tears (Lacrilube Opht Oint) 3.5 applic STK-MED ONCE .ROUTE ; Start at 08:41; Stop 01/20/17 at 08:42; Status DC Fentanyl Citrate 500 mcg 500 mcg STK-MED ONCE .ROUTE ; Start 01/20/17 at 08:42; Stop 01/20/17 at 08:43; Status DC Cefazolin Sodium/ Dextrose 50 ml @ As Directed STK-MED ONCE .ROUTE Last administered on 01/20/17 13:34; Start 01/20/17 at 13:14; Stop 01/20/17 at 13:15; Status DC Potassium Chloride/Sodium Chloride (NS + KCl 20 Meq Inj) 1,000 ml @ 100 mls/hr Q10H IV Last administered on 01/23/17 11:45; Start 01/20/17 at 14:55 IV Flush (NS Flush) 2 ml UNSCH PRN IVF FLUSH AFTER USING IV ACCESS; Start at 15:00 IV Flush 2 ml 2 ml BID IVF Last administered on 01/21/17 21:00; Start 01/20/17 at 15:00 Cefazolin Sodium/ Dextrose (Ancef 2 Gm Premix) 50 ml @ 100 mls/hr Q8H IV Last administered on 01/21/17 12:34; Start 01/20/17 at 21:00; Stop 01/21/17 at 13:29; Status DC Docusate Sodium (Colace) 100 mg BID PO Last administered on 01/23/17 09:31; Start 01/20/17 at 15:00 Magnesium Hydroxide (Milk Of Magnesia Liq) 30 ml DAILY PRN PO CONSTIPATION Last administered on 01/23/17 11:43; Start 01/20/17 at 15:00 Pantoprazole Sodium (Protonix Inj) 40 mg DAILY IVP Last administered on 09:10; Start 01/20/17 at 15:00; Stop 01/23/17 at 08:05; Status DC Ondansetron HCl (Zofran Inj) 4 mg Q6H PRN IV NAUSEA OR VOMITING; Start 01/20/17 at 15:00 Cyclobenzaprine HCl (Flexeril) 10 mg Q8H PRN PO MUSCLE SPASM Last administered on 01/22/17 20:39; Start 01/20/17 at 15:00 Clonidine (Catapres) 0.1 mg Q6H PRN PO/NG SYS BP GREATER THAN 170 MMHG; Start 01/20/17 at 15:00 Acetaminophen (Tylenol) 650 mg Q4H PRN PO TEMPERATURE > 101.5 F; Start 01/20/17 at 15:00 Menthol ([place] Jason) 1 lozenge UNSCH PRN BUCCAL SORE THROAT; Start 01/20/17 at 15 :00 Zolpidem Tartrate (Ambien) 5 mg HS PRN PO INSOMNIA Last administered on 21:10; Start 01/20/17 at 15:00 Albuterol Sulfate (Albuterol Neb) 2.5 mg Q4HR NEB PRN INH WHEEZING; Start at 15:00 Naloxone HCl (Narcan Inj) 0.4 mg UNSCH PRN IV RESPIRATORY RATE LESS THAN 10; Start 01/20/17 at 15:00 Diphenhydramine HCl (Benadryl Inj) 25 mg Q6H PRN IV ITCHING Last administered on 01/22/17 02:38; Start 01/20/17 at 15:00 Hydromorphone HCl (Dilaudid CELL COVERER Inj) 6 mg UNSCH IV Last administered on 09:34; Start 01/20/17 at 15:00; Stop 01/23/17 at 14:10; Status DC CELL COVERER Dosage Infused (Pha) 1 Q8HR .XX Last administered on 01/23/17 06:00; Start 01/20/17 at 15:00 Buspirone HCl (Buspar) 10 mg BID PO Last administered on 01/23/17 09:31; Start 01/20/17 at 21:00 Gabapentin (Neurontin) 100 mg TID PO Last administered on 01/21/17 17:16; Start 01/20/17 at 18:00; Stop 01/22/17 at 07:23; Status DC Budesonide/ Formoterol Fumarate (Symbicort 160-4.5 Inh) 2 puff BID INH Last administered on 01/22/17 20:39; Start 01/20/17 at 21:00 Fluticasone/ Vilanterol (Breo Ellipta 100-25 Inh) 1 puff DAILY INH Last administered on 01/22/17 09:12; Start 01/21/17 at 09:00 Miscellaneous Information ALL NURSING DEPARTME... UNSCH PRN .XX SEE LABEL COMMENTS; Start 01/20/17 at 14:59; Stop 01/21/17 at 14:58; Status DC Fentanyl Citrate (fentaNYL INJ) 250 mcg STK-MED ONCE .ROUTE ; Start 01/20/17 at 14:28; Stop 01/20/17 at 15:33; Status DC Meperidine HCl (*DEMEROL INJ PERIprocedural ONLY) 25 mg STK-MED ONCE .ROUTE Last administered on 01/20/17 15:21; Start 01/20/17 at 15:21; Stop 01/20/17 at 15: 38; Status DC Hydromorphone HCl (*DILAUDID PF INJ PERIprocedural ONLY) 1 mg STK-MED ONCE .ROUTE Last administered on 01/20/17 15:32; Start 01/20/17 at 15:32; Stop at 15:39; Status DC Hydromorphone HCl (*DILAUDID PF INJ PERIprocedural ONLY) 1 mg STK-MED ONCE .ROUTE Last administered on 01/20/17 15:44; Start 01/20/17 at 15:44; Stop at 15:45; Status DC Hydromorphone HCl (*DILAUDID PF INJ PERIprocedural ONLY) 1 mg STK-MED ONCE .ROUTE Last administered on 01/20/17 16:08; Start 01/20/17 at 16:08; Stop at 16:09; Status DC Hydroxyzine HCl (*VISTARIL INJ PERIprocedural ONLY) 25 mg STK-MED ONCE IM Last administered on 01/20/17 16:18; Start 01/20/17 at 16:18; Stop 01/20/17 at 16:19; Status DC Oxycodone/ Acetaminophen (Percocet 10-325 Mg) 1 tab Q4H PRN PO PAIN SCALE 1 TO 10 Last administered on 01/23/17 14:00; Start 01/20/17 at 21:45 Enoxaparin Sodium (Lovenox Inj) 40 mg Q24H SQ Last administered on 01/23/17 09: 31; Start 01/22/17 at 09:00 Ketorolac Tromethamine (Toradol Inj) 30 mg NOW ONCE IM Last administered on 07:39; Start 01/22/17 at 07:30; Stop 01/22/17 at 07:31; Status DC Gabapentin (Neurontin) 600 mg TID PO Last administered on 01/23/17 13:00; Start 01/22/17 at 09:00 Pantoprazole Sodium (Protonix) 40 mg DAILY PO Last administered on 01/23/17 09: 31; Start 01/23/17 at 09:00 Oxycodone HCl (OxyCONTIN CR) 40 mg BID PO ; Start 01/23/17 at 21:00 Oxycodone/ Acetaminophen (Percocet 10-325 Mg) 1 tab Q4HR PO ; Start 01/23/17 at 16:00; Stop 01/23/17 at 16:00; Status DC A/P Problem List: (1) Status post laminectomy ICD Code: Z98.890 (2) Lower back pain ICD Code: M54.5 Assessment and Plan A/P Post Laminectomy Lower Back Pain PT planned Neurosurgery following Returned to home dosing of Oxycodone Monitor pain levels Kyle Cardenas MD Jan 23, 2017 17:16
[2017-01-23 20:00] VITALS: BP 133/80; PULSE 81; RESP 18; TEMP 98.6; O2SAT 98
[2017-01-23] MEDS: oxyCODONE HCL 20 MG CONTROLLED RELEASE TAB PO SCH (21:38)
[2017-01-23] MEDS: SODIUM CHLORIDE 0.9% FLUSH 5 ML FLUSH IVF SCH ×2 (21:42→21:44)
--- NOTE | 2017-01-23 23:58 | HHI.NSPN ---
History Chief Complaint: rather severe aching primarily anterior greater than posterior thighs Interval History 56-year-old male status post L3 4 TLIF Exam Results Vital Signs Date Time Temp Pulse Resp B/P Pulse Ox O2 Delivery O2 Flow Rate FiO2 01/23/17 20:00 98.6 81 18 133/80 98 01/22/17 20:03 Nasal Cannula 4.00 Intake and Output 01/22/17 01/22/17 01/23/17 08:00 16:00 00:00 Intake Total 9 ml 840 ml Output Total 2300 ml 1400 ml 700 ml Balance -2300 ml -1391 ml 140 ml Physical Examination Mr. Jacome is awake and oriented to time, place and person. Speech is fluent. Facial motor movements symmetric. Extraocular movements intact Neck is soft and supple Motor: Lower extremity motor function mostly 3/5 iliopsoas quadriceps and hamstrings with complaint of low back and thigh pain with testing, 4-5/5 distal lower extremity flexion and extension grooves. Sensory examination: reports grossly intact light touch in LE's Plantars downgoing b/l, no ankle clonus Lumbar dressing is dry and intact. No significant erythema and edema around the incision site. Medical Decision Making Impression and Plan Impression: Stable neurologic status following L3 4 TLIF He does report increased pain and aching in his thighs today postoperative Plan: We will observe for any neurologic changes or increasing thigh pain. Some symptoms suggestive of postoperative epidural hematoma Continue close neurologic checks Continue present pain medications Continue physical therapy Consider MRI if lower extremity symptoms increase Marco Castellanos MD Jan 23, 2017 23:58
[2017-01-24] VITALS (8 sets, daily range): BP systolic 119–132; BP diastolic 73–85; PULSE 88–117; RESP 18–22; TEMP 97.8–99.7; O2SAT 92–97
[2017-01-24] MEDS: oxyCODONE/ACETAMINOPHEN 10 MG/325 MG TAB PO PRN ×5 (04:32→22:15)
[2017-01-24] MEDS: PCA - TOTAL MG DILAUDID DELIVERED PER SHIFT SCH ×2 (06:00→14:04)
[2017-01-24] MEDS: CYCLOBENZAPRINE HCL 10 MG TAB PO PRN ×2 (06:39→15:20)
[2017-01-24] MEDS: SODIUM CHLOR 0.9% 1000 ML INJ 1,000 ML IV SCH (07:30)
[2017-01-24] MEDS: NS + KCL 20 MEQ INJ 1,000 ML IV SCH (08:33)
[2017-01-24] MEDS: SODIUM CHLORIDE 0.9% FLUSH 5 ML FLUSH IVF SCH ×2 (08:34→20:30)
[2017-01-24] MEDS: DOCUSATE SODIUM 100 MG CAP PO SCH ×2 (08:34→20:30)
[2017-01-24] MEDS: busPIRone HCL 10 MG TAB PO SCH ×2 (08:34→20:30)
[2017-01-24] MEDS: ENOXAPARIN SODIUM 40 MG/0.4 ML SYRINGE SQ SCH (08:34)
[2017-01-24] MEDS: PANTOPRAZOLE SOD 40 MG DELAYED RELEASE TAB PO SCH (08:35)
[2017-01-24] MEDS: GABAPENTIN 300 MG CAP PO SCH ×3 (08:35→18:13)
[2017-01-24] MEDS: oxyCODONE HCL 20 MG CONTROLLED RELEASE TAB PO SCH ×2 (08:35→20:31)
[2017-01-24] MEDS: FLUTICASONE 100 MCG/VILANTEROL 25 MCG INHALER INH SCH (08:36)
[2017-01-24] MEDS: BUDESONIDE-FORMOTEROL 160/4.5 MCG INHALER INH SCH ×2 (08:36→20:32)
[2017-01-24 08:48] LABS: BICARBONATE 28.3 MEQ/L (21.0-32.0); POTASSIUM 3.9 MEQ/L (3.5-5.1)
--- NOTE | 2017-01-24 11:59 | HHI.PR ---
Subjective Remarks Pain remains. Not ready for OOB or PT yet. Pain control improved. No nausea. No bowel movements, but he does not feel any urge or constipation. Objective Vital Signs Date Time Temp Pulse Resp B/P Pulse Ox O2 Delivery O2 Flow Rate FiO2 01/24/17 09:22 95 Nasal Cannula 4.00 01/24/17 08:19 98.3 92 19 121/74 93 01/24/17 04:00 98.6 117 22 132/83 96 01/24/17 00:00 98.9 91 18 126/85 95 01/24/17 00:00 98.9 91 18 126/85 95 01/23/17 20:00 98.6 81 18 133/80 98 01/23/17 17:00 18 01/23/17 16:00 97.7 91 20 117/86 97 01/23/17 12:00 96.6 94 20 148/93 98 I/O 01/23/17 01/23/17 01/23/17 01/24/17 01/24/17 01/24/17 07:00 15:00 23:00 07:00 15:00 23:00 Intake Total 120 ml 480 ml Output Total 650 ml 500 ml 1450 ml 400 ml Balance -530 ml -20 ml -1450 ml -400 ml Intake Oral 120 ml 480 ml Output Urine Total 650 ml 500 ml 1450 ml 400 ml # Bowel Movements 0 Result Diagram: 01/22/17 1146 01/24/17 0613 Objective Remarks GENERAL: NAD, AOx3 SKIN: Warm and dry. HEAD: Atraumatic. Normocephalic. EYES: Pupils equal and round. No scleral icterus. No injection or drainage. ENT: No nasal bleeding or discharge. Mucous membranes pink and moist. NECK: Trachea midline. No JVD. CARDIOVASCULAR: Regular rate and rhythm. RESPIRATORY: No accessory muscle use. Clear to auscultation. Breath sounds equal bilaterally. GASTROINTESTINAL: Abdomen soft, non-tender, nondistended. Hepatic and splenic margins not palpable. MUSCULOSKELETAL: Extremities without clubbing, cyanosis, or edema. No obvious deformities. Spine is appropriately stiff and patient is guarding with movements , post laminectomy L3-4 NEUROLOGICAL: Awake and alert. No obvious cranial nerve deficits. Motor grossly within normal limits. Five out of 5 muscle strength in the arms and legs. Normal speech. PSYCHIATRIC: Appropriate mood and affect; insight and judgment normal. Medications and IVs Administered Medications Medications (Trade) Dose Ordered Sig/Bassam Route PRN Reason Start Time Stop Time Status Last Admin Dose Admin Potassium Chloride/Sodium Chloride (NS + KCl 20 Meq Inj) 1,000 ml @ 100 mls/hr Q10H IV 01/20/17 14:55 01/24/17 08:33 IV Flush (NS Flush) 2 ml BID IVF 01/20/17 15:00 01/24/17 08:34 Docusate Sodium (Colace) 100 mg BID PO 01/20/17 15:00 01/24/17 08:34 Magnesium Hydroxide (Milk Of Magnmaximiliano Liq) 30 ml DAILY PRN PO CONSTIPATION 01/20/17 15:00 01/23/17 11:43 Cyclobenzaprine HCl (Flexeril) 10 mg Q8H PRN PO MUSCLE SPASM 01/20/17 15:00 01/24/17 06:39 Zolpidem Tartrate (Ambien) 5 mg HS PRN PO INSOMNIA 01/20/17 15:00 01/21/17 21:10 Diphenhydramine HCl (Benadryl Inj) 25 mg Q6H PRN IV ITCHING 01/20/17 15:00 01/22/17 02:38 ASSISTANT HALL DIRECTOR Dosage Infused (Pha) 1 Q8HR .XX 01/20/17 15:00 01/23/17 17:00 Buspirone HCl (Buspar) 10 mg BID PO 01/20/17 21:00 01/24/17 08:34 Budesonide/ Formoterol Fumarate (Symbicort 160-4.5 Inh) 2 puff BID INH 01/20/17 21:00 01/24/17 08:36 Fluticasone/ Vilanterol (Breo Ellipta 100-25 Inh) 1 puff DAILY INH 01/21/17 09:00 01/24/17 08:36 Oxycodone/ Acetaminophen (Percocet 10-325 Mg) 1 tab Q4H PRN PO PAIN SCALE 1 TO 10 01/20/17 21:45 01/24/17 08:35 Enoxaparin Sodium (Lovenox Inj) 40 mg Q24H SQ 01/22/17 09:00 01/24/17 08:34 Gabapentin (Neurontin) 600 mg TID PO 01/22/17 09:00 01/24/17 08:35 Pantoprazole Sodium (Protonix) 40 mg DAILY PO 01/23/17 09:00 01/24/17 08:35 Oxycodone HCl (OxyCONTIN CR) 40 mg BID PO 01/23/17 21:00 01/24/17 08:35 A/P Problem List: (1) Status post laminectomy ICD Code: Z98.890 (2) Lower back pain ICD Code: M54.5 Assessment and Plan A/P Post Laminectomy Lower Back Pain PT planned Neurosurgery following Continue PRN pain treatments Continue long acting pain treatment at home dose Monitor pain levels Kyle Cardenas MD Jan 24, 2017 11:59 am
[2017-01-24] MEDS: MAGNESIUM HYDROXIDE SUSP 30 ML CUP PO PRN (15:23)
--- NOTE | 2017-01-24 18:44 | HHI.NSPN ---
History Chief Complaint: rather severe aching primarily anterior greater than posterior thighs Interval History 56-year-old male status post L3 4 TLIF Exam Results Vital Signs Date Time Temp Pulse Resp B/P Pulse Ox O2 Delivery O2 Flow Rate FiO2 01/24/17 16:41 99.7 89 19 119/74 97 01/24/17 09:22 Nasal Cannula 4.00 Intake and Output 01/23/17 01/23/17 01/24/17 08:00 16:00 00:00 Intake Total 120 ml 480 ml Output Total 650 ml 500 ml 1450 ml Balance -530 ml -20 ml -1450 ml Physical Examination Mr. Jacome is awake and oriented to time, place and person. Speech is fluent. Facial motor movements symmetric. Extraocular movements intact Neck is soft and supple Motor: Lower extremity motor function mostly 3/5 iliopsoas quadriceps and hamstrings with complaint of low back and thigh pain with testing, 4-5/5 distal lower extremity flexion and extension grooves. Sensory examination: reports grossly intact light touch in LE's Plantars downgoing b/l, no ankle clonus Lumbar dressing is dry and intact. No significant erythema and edema around the incision site. Medical Decision Making Impression and Plan Impression: Stable neurologic status following L3 4 TLIF He does report increased pain and aching in his thighs today postoperative Plan: We will observe for any neurologic changes or increasing thigh pain. Some symptoms suggestive of postoperative epidural hematoma Continue close neurologic checks Continue present pain medications Continue physical therapy Discussed with patient Will begin a trial courses Decadron Consider MRI if lower extremity symptoms increase Marco Castellanos MD Jan 24, 2017 18:44
[2017-01-24] MEDS: DEXAMETHASONE SOD PHOS 4 MG/ML VIAL IV PUSH SCH (18:51)
[2017-01-25] VITALS: BP 119/74; PULSE 83; RESP 18; TEMP 98.2; O2SAT 94
[2017-01-25] MEDS: CYCLOBENZAPRINE HCL 10 MG TAB PO PRN (00:54)
[2017-01-25] MEDS: ZOLPIDEM TARTRATE 5 MG TAB PO PRN (00:54)
[2017-01-25 04:00] VITALS: BP 128/78; PULSE 67; RESP 18; TEMP 97.6; O2SAT 94
[2017-01-25] MEDS: DEXAMETHASONE SOD PHOS 4 MG/ML VIAL IV PUSH SCH ×2 (04:20→11:55)
[2017-01-25] MEDS: PCA - TOTAL MG DILAUDID DELIVERED PER SHIFT SCH (06:00)
[2017-01-25] MEDS: oxyCODONE/ACETAMINOPHEN 10 MG/325 MG TAB PO PRN ×2 (06:22→13:17)
[2017-01-25 08:48] VITALS: BP 115/75; PULSE 86; RESP 20; TEMP 97.6; O2SAT 95
[2017-01-25] MEDS: DOCUSATE SODIUM 100 MG CAP PO SCH (08:50)
[2017-01-25] MEDS: GABAPENTIN 300 MG CAP PO SCH ×2 (08:50→13:17)
[2017-01-25] MEDS: busPIRone HCL 10 MG TAB PO SCH (08:50)
[2017-01-25] MEDS: PANTOPRAZOLE SOD 40 MG DELAYED RELEASE TAB PO SCH (08:51)
[2017-01-25] MEDS: ENOXAPARIN SODIUM 40 MG/0.4 ML SYRINGE SQ SCH (08:51)
[2017-01-25 08:52] VITALS: O2SAT 96
[2017-01-25] MEDS: oxyCODONE HCL 20 MG CONTROLLED RELEASE TAB PO SCH (08:58)
[2017-01-25] MEDS: FLUTICASONE 100 MCG/VILANTEROL 25 MCG INHALER INH SCH (09:00)
[2017-01-25] MEDS: SODIUM CHLORIDE 0.9% FLUSH 5 ML FLUSH IVF SCH (09:00)
[2017-01-25] MEDS: BUDESONIDE-FORMOTEROL 160/4.5 MCG INHALER INH SCH (09:00)
[2017-01-25] MEDS ORDERED: OXYC1TAB36 PO (09:35)
[2017-01-25] MEDS ORDERED: ZANA4CAP PO (09:36)
[2017-01-25] MEDS ORDERED: GABA600T PO (09:36)
[2017-01-25] MEDS ORDERED: WALKER WHEELS/F1 MIS (10:59)
--- NOTE | 2017-01-25 11:00 | HHI.DCPOC ---
Discharge Care Plan Diagnosis: (1) S/P lumbar spinal fusion Goals to Promote Your Health * To prevent worsening of your condition and complications * To maintain your health at the optimal level Directions to Meet Your Goals Take your medications as prescribed Follow your dietary instruction Follow activity as directed Keep your appointments as scheduled Take your immunizations and boosters as scheduled If your symptoms worsen call your PCP, if no PCP go to Urgent Care Center or Emergency Room Smoking is Dangerous to Your Health. Avoid second hand smoke Call the 24-hour hour crisis hotline for domestic abuse at Karime Limon Jan 25, 2017 11:00
--- NOTE | 2017-01-25 11:01 | HHI.DS ---
Discharge Summary Admission Date Jan 20, 2017 at 06:43 Discharge Date: Jan 25, 2017 Admitting Diagnosis s/p lumbar fusion (1) S/P lumbar spinal fusion ICD Code: Z98.1 Brief History Mr. Jacome is a 56-year-old man with a history of a prior L3-L4 bilateral laminectomy and discectomy, who developed chronic low back pain and spondylolisthesis at this level. He presented with intractable mechanical back pain and angella evidence of L4 bilateral lower extremity radiculopathy. He failed maximum nonsurgical management including multiple modalities of conservative treatment as well as pain management interventions by an interventional pain specialist. A surgical decompression and arthrodesis were indicated as a last resource. CBC/BMP: 01/22/17 1146 01/24/17 0613 Significant Findings Laboratory Tests Test 01/22/17 01/24/17 11:46 06:13 White Blood Count 11.8 TH/MM3 (4.0-11.0) Red Blood Count 3.65 MIL/MM3 (4.50-5.90) Hemoglobin 11.8 GM/DL (13.0-17.0) Hematocrit 35.1 % (39.0-51.0) Mean Platelet Volume 6.6 FL (7.0-11.0) Creatinine 0.46 MG/DL (0.60-1.30) Imaging Last Impressions Lumbar Spine X-Ray 01/20/17 0000 Signed Impressions: Service Date/Time: Friday, January 20, 2017 10:02 - CONCLUSION: The patient is status post fusion of L3 and L4 with plate and allograft. Allograft is slightly to the right in the disc space. Freddy Martin MD [facility] Hospital Course Mr. Jacome underwent a redo L3-L4 laminectomy, interbody arthrodhesis using PEEK cage and autologous bone graft, L4-5 instrumental fixation using transpedicular screws and rods, L3-4 posterolateral fusion using autologous bone graft and rods. Microsurgical dissection on Jan 20, 2017. He was placed on bed rest for 48 hours following his operation. His pain was managed with BULLDOZER OPERATOR pump that was subsequently weaned off. His surgical pain controlled on oral pain medications. He was discharged home in stable conditions. Wound care and activity restrictions were discussed. Pt Condition on Discharge: Stable Discharge Disposition: Discharge Home Discharge Instructions DIET: Follow Instructions for: Heart Healthy Diet ACTIVITIES You can perform: Weight Bearing As Phillip ADDITIONAL Activity Instructio: Avoid strenuous activities, heavy lifting, overhead activities, repetitive bending, twisting, pushing, pulling or any activities which might result in stress over the spine. Avoid situtation that will put at risk for falls. Use assistive device as needed for walking. Wear TLSO brace when out of bed. New Medications: Gabapentin (Gabapentin) 600 Mg Tab 600 MG PO BID Pain #60 Ref 1 TAB Tizanidine (Zanaflex) 4 Mg Cap 4 MG PO TID Muscle Spasm #90 Ref 1 CAP Walker with Front Wheels (Walker with Front Wheels) 1 Mis Mis 1 EA .ROUTE DIRECTED #1 Ref 0 EA Oxycodone-Acetaminophen (Oxycodone-Acetaminophen) 10-325 mg Tab 2 TAB PO Q12HR PRN PAIN SCALE 1 TO 10 #90 Ref 0 TAB Continued Medications: Buspirone (Buspirone) 10 Mg Tab 10 MG PO BID Anxiety Ref 0 TAB Fluticasone-Salmeterol Inh (Advair Diskus Inh) 500-50 Mcg/Blist Aer 1 PUFF INH DAILY Rinse mouth after use. copd #1 Ref 0 INHALER Fluticasone-Vilanterol Inh (Breo Ellipta Inh) 200-25 Mcg/Act Inh 1 PUFF INH DAILY Use daily at the same time. #1 Ref 0 INHALER Gabapentin (Gabapentin) 100 Mg Cap 100 MG PO TID Pain Management Days 30 CAP Discontinued Medications: Oxycodone ER (Oxycontin) 20 Mg Tab 40 MG PO BID Pain Management #40 Ref 0 TAB Oxycodone-Acetaminophen (Percocet) 10-325 mg Tab 1 TAB PO Q4HR Pain Management #60 Ref 0 TAB Karime Limon Jan 25, 2017 11:01
--- NOTE | 2017-01-25 11:02 | HHI.FF ---
Face to Face Verification Diagnosis: (1) Status post laminectomy Physical Therapy Order: Improve ambulation Home Health Nursing Order: Medical education Signs/symptoms of disease process Wound care and dressing changes Nursing assessment with vital signs I have seen patient Henry Jacome on 01/25/17. My clinical findings support the need for the requested home health care services because: Ltd mobility - disease progression Deconditioned w/ increased weakness I certify that my clinical findings support that this patient is homebound because: Post-op weakness Unsteady gait/balance Karime Limon Jan 25, 2017 11:02
[2017-01-25 13:12] VITALS: BP 125/75; PULSE 80; RESP 20; TEMP 98.9; O2SAT 97
--- NOTE | 2017-01-25 13:37 | HHI.NSPN ---
(Karime Limon) Note Status Status: Progress Note (Karime Limon) Interval History Interval History Mr. Jacome is a 56 year old male who underwent a redo L3-L4 laminectomy, with interbody arthrodesis using PEEK cage autologous bone graft, instrumental fixation using transpedicular screws and rods on Jan 20, 2017. 01/21: patient seen this am during rounds, POD 1, patient remains in bed rest. He c/o of severe surgical pain, feeling of tightness in his legs. Movement limited secondary to his pain. He is using his Dilauded RADIO ANTENNA INSTALLER as well as oral Percocet prn. He denies chest pain, difficulty breathing. 01/22: POD 2, continues to report of severe surgical pain and achiness into the left thigh, able to move LE's but says is limited due to his pain. 01/25: continues to reports of lumbar pain and pain in his thighs but controlled with oxycodone, requesting dc home with oxycodone. Otherwise says he is doing well, able mobilize OOB, uses rolling walker. (Karime Limon) Labs, Micro, & Vital Signs Results Date Time Temp Pulse Resp B/P Pulse Ox O2 Delivery O2 Flow Rate FiO2 01/25/17 13:12 98.9 80 20 125/75 97 01/25/17 08:52 96 21 01/25/17 08:48 97.6 86 20 115/75 95 01/25/17 04:00 97.6 67 18 128/78 94 01/25/17 00:00 98.2 83 18 119/74 94 01/24/17 21:01 96 Nasal Cannula 4.00 01/24/17 20:00 99.1 91 18 120/73 92 01/24/17 16:41 99.7 89 19 119/74 97 01/25/17 07:00 Intake Total 600 ml Output Total 4100 ml Balance -3500 ml Constitutional Vital Signs Date Time Temp Pulse Resp B/P Pulse Ox O2 Delivery O2 Flow Rate FiO2 01/25/17 13:12 98.9 80 20 125/75 97 01/25/17 08:52 96 21 01/25/17 08:48 97.6 86 20 115/75 95 01/25/17 04:00 97.6 67 18 128/78 94 01/25/17 00:00 98.2 83 18 119/74 94 01/24/17 21:01 96 Nasal Cannula 4.00 01/24/17 20:00 99.1 91 18 120/73 92 01/24/17 16:41 99.7 89 19 119/74 97 01/25/17 07:00 Intake Total 600 ml Output Total 4100 ml Balance -3500 ml (Karime Limon) Review of Systems/Exam Exam Mr. Jacome is awake and oriented x 3. Speech is fluent. Lumbar wound healing well, no drainage, redness. New dressing replaced. CN: facial motor symmetric Neck is soft and supple Motor: Lower extremities: 4/5 iliopsoas quadriceps and hamstrings with some discomfort, 5/5 distal lower extremity flexion and extension. Sensory examination: reports grossly intact light touch in LE's Plantars downgoing b/l, no ankle clonus he was able to stand up out of bed on his own without significant difficulties ( Karime Limon) Medications Current Medications Current Medications Medications (Trade) Dose Ordered Sig/Bassam Route PRN Reason Start Time Stop Time Status Last Admin Dose Admin Sodium Chloride (NS 1000 ml Inj) 1,000 ml @ 30 mls/hr Q24H IV 01/20/17 07:30 IV Flush (NS Flush) 2 ml UNSCH PRN IVF FLUSH AFTER USING IV ACCESS 01/20/17 15:00 IV Flush (NS Flush) 2 ml BID IVF 01/20/17 15:00 01/25/17 09:00 Docusate Sodium (Colace) 100 mg BID PO 01/20/17 15:00 01/25/17 08:50 Magnesium Hydroxide (Milk Of Magnesia Liq) 30 ml DAILY PRN PO CONSTIPATION 01/20/17 15:00 01/24/17 15:23 Ondansetron HCl (Zofran Inj) 4 mg Q6H PRN IV NAUSEA OR VOMITING 01/20/17 15:00 Cyclobenzaprine HCl (Flexeril) 10 mg Q8H PRN PO MUSCLE SPASM 01/20/17 15:00 01/25/17 00:54 Clonidine (Catapres) 0.1 mg Q6H PRN PO/NG SYS BP GREATER THAN 170 MMHG 01/20/17 15:00 Acetaminophen (Tylenol) 650 mg Q4H PRN PO TEMPERATURE > 101.5 F 01/20/17 15:00 Menthol (Lankin Jason) 1 lozenge UNSCH PRN BUCCAL SORE THROAT 01/20/17 15:00 Zolpidem Tartrate (Ambien) 5 mg HS PRN PO INSOMNIA 01/20/17 15:00 01/25/17 00:54 Naloxone HCl (Narcan Inj) 0.4 mg UNSCH PRN IV RESPIRATORY RATE LESS THAN 10 01/20/17 15:00 Diphenhydramine HCl (Benadryl Inj) 25 mg Q6H PRN IV ITCHING 01/20/17 15:00 01/22/17 02:38 RADIO ANTENNA INSTALLER Dosage Infused (Pha) 1 Q8HR .XX 01/20/17 15:00 01/23/17 17:00 Buspirone HCl (Buspar) 10 mg BID PO 01/20/17 21:00 01/25/17 08:50 Budesonide/ Formoterol Fumarate (Symbicort 160-4.5 Inh) 2 puff BID INH 01/20/17 21:00 01/25/17 09:00 Fluticasone/ Vilanterol (Breo Ellipta 100-25 Inh) 1 puff DAILY INH 01/21/17 09:00 01/25/17 09:00 Oxycodone/ Acetaminophen (Percocet 10-325 Mg) 1 tab Q4H PRN PO PAIN SCALE 1 TO 10 01/20/17 21:45 01/25/17 13:17 Enoxaparin Sodium (Lovenox Inj) 40 mg Q24H SQ 01/22/17 09:00 01/25/17 08:51 Gabapentin (Neurontin) 600 mg TID PO 01/22/17 09:00 01/25/17 13:17 Pantoprazole Sodium (Protonix) 40 mg DAILY PO 01/23/17 09:00 01/25/17 08:51 Oxycodone HCl (OxyCONTIN CR) 40 mg BID PO 01/23/17 21:00 01/25/17 08:58 Dexamethasone Sodium Phosphate (Decadron Inj) 4 mg Q8H IV PUSH 01/24/17 18:45 01/26/17 10:46 01/25/17 11:55 (Karime Limon) Medical Decision Making MDM Remarks 56 y/o male s/p L3-L4 PLIF 01/20/17, POD 5, postop pain improving, controlled on oral medications (Karime Limon) Plan Plan Remarks improving mobilization, ambulate with walker TLSO when out of bed neuro stable cont IS Dr. Molina has cleared for dc home, discussed wound care and activity restriction f/u in office in 2-3 weeks (Karime Limon) Attending Statement The exam, history, and the medical decision-making described in the above note were completed with the assistance of the mid-level provider. I reviewed and agree with the findings presented. I attest that I had a [id number] encounter with the patient on the same day, and personally performed and documented my assessment and findings in the medical record. (Darrick Molina MD) Karime Limon Jan 25, 2017 13:37 Darrick Molina MD Jan 31, 2017 18:16
--- NOTE | 2017-01-25 16:01 | HHI.PR ---
Subjective Remarks f/u back pain Patient has no complaints he said that symptoms are improving. Patient stated that he is ready to be discharged today. Objective Vitals Vital Signs Date Time Temp Pulse Resp B/P Pulse Ox O2 Delivery O2 Flow Rate FiO2 01/25/17 13:12 98.9 80 20 125/75 97 01/25/17 08:52 96 21 01/25/17 08:48 97.6 86 20 115/75 95 01/25/17 04:00 97.6 67 18 128/78 94 01/25/17 00:00 98.2 83 18 119/74 94 01/24/17 21:01 96 Nasal Cannula 4.00 01/24/17 20:00 99.1 91 18 120/73 92 01/24/17 16:41 99.7 89 19 119/74 97 I/O 01/24/17 01/24/17 01/24/17 01/25/17 01/25/17 01/25/17 07:00 15:00 23:00 07:00 15:00 23:00 Intake Total 600 ml Output Total 400 ml 2600 ml 1500 ml Balance -400 ml -2000 ml -1500 ml Intake Oral 600 ml Output Urine Total 400 ml 2600 ml 1500 ml Result Diagram: 01/22/17 1146 01/24/17 0613 Objective Remarks GENERAL: in NAD CARDIOVASCULAR: Regular rate and rhythm without murmurs, gallops, or rubs. RESPIRATORY: Breath sounds equal bilaterally. No accessory muscle use. GASTROINTESTINAL: Abdomen soft, non-tender, nondistended. MUSCULOSKELETAL: No cyanosis, or edema. BACK: Nontender without obvious deformity. No CVA tenderness. Procedures 4/6- L3-L4 laminectomy Medications and IVs Current Medications Sodium Chloride 1,000 ml @ 30 mls/hr Q24H IV ; Start 01/20/17 at 07:30 Vancomycin HCl 1000 mg/Sodium Chloride 250 ml @ 250 mls/hr HUMAN RESOURCES RECEPTIONIST IV Last administered on 01/20/17t 08:01; Start 01/20/17 at 07:30; Stop 01/23/17 at 07:29; Status DC Lactated Ringer's 1,000 ml @ 0 mls/hr Q0M PRN IV SEE LABEL COMMENTS; Start 01/20 at 07:30; Stop 01/23/17 at 07:29; Status DC Sodium Chloride (NS 500 ml Inj) 500 ml @ 30 mls/hr [id number] PRN IV SEE LABEL COMMENTS; Start 01/20/17 at 07:30; Stop 01/23/17 at 07:29; Status DC Metoprolol Tartrate (Lopressor) 25 mg HUMAN RESOURCES RECEPTIONIST PRN PO SEE LABEL COMMENTS; Start 01/20/17 at 07:30; Stop 01/23/17 at 07:29; Status DC Povidone Iodine (Betadine 5% Antisepsis Kit) 1 applic HUMAN RESOURCES RECEPTIONIST PRN EACH NARE SEE LABEL COMMENTS; Start 01/20/17 at 07:30; Stop 01/23/17 at 07:29; Status DC Chlorhexidine Gluconate (Chlorhexidine 2% Cloth) 3 pack HUMAN RESOURCES RECEPTIONIST PRN TOPICAL SEE LABEL COMMENTS; Start 01/20/17 at 07:30; Stop 01/23/17 at 07:29; Status DC Insulin Human Regular (NovoLIN R INJ) See Protocol Table ... HUMAN RESOURCES RECEPTIONIST PRN SQ SEE PROTOCOL TABLE; Start 01/20/17 at 07:30; Stop 01/23/17 at 07:29; Status DC Vancomycin HCl (Vancomycin Inj) 1,000 mg STK-MED ONCE .ROUTE ; Start 01/20/17 at 07:26; Stop 01/20/17 at 07:27; Status DC Thrombin 93874 units 10,000 units STK-MED ONCE .ROUTE Last administered on 10:07; Start 01/20/17 at 07:26; Stop 01/20/17 at 07:27; Status DC Cefazolin Sodium/ Dextrose (Ancef 2 Gm Premix) 50 ml @ As Directed STK-MED ONCE .ROUTE Last administered on 01/20/17 09:34; Start 01/20/17 at 07:26; Stop at 07:27; Status DC Bupivacaine HCl/ Epinephrine Bitart (Sensorcaine-Epinephrine Pf 0.5% Inj) 30 ml STK-MED ONCE .ROUTE ; Start 01/20/17 at 07:26; Stop 01/20/17 at 07:27; Status DC Gelatin (Gelfoam 100 Top) 1 foam STK-MED ONCE .ROUTE Last administered on 10:07; Start 01/20/17 at 07:26; Stop 01/20/17 at 07:27; Status DC Gentamicin Sulfate 240 mg 240 mg STK-MED ONCE .ROUTE Last administered on 10:07; Start 01/20/17 at 07:27; Stop 01/20/17 at 07:28; Status DC Sodium Chloride (NS 250 ml Inj) 250 ml @ As Directed STK-MED ONCE .ROUTE ; Start 01/20/17 at 07:27; Stop 01/20/17 at 07:28; Status DC Midazolam HCl (Versed Inj) 2 mg STK-MED ONCE .ROUTE Last administered on 08:25; Start 01/20/17 at 08:24; Stop 01/20/17 at 08:25; Status DC Dexamethasone Sodium Phosphate (Decadron Inj) 4 mg STK-MED ONCE .ROUTE Last administered on 01/20/17 08:26; Start 01/20/17 at 08:24; Stop 01/20/17 at 08:25; Status DC Acetaminophen (Ofirmev Inj) 1,000 mg STK-MED ONCE IV ; Start 01/20/17 at 08:41; Stop 01/20/17 at 08:42; Status DC Artificial Tears (Lacrilube Opht Oint) 3.5 applic STK-MED ONCE .ROUTE ; Start at 08:41; Stop 01/20/17 at 08:42; Status DC Fentanyl Citrate 500 mcg 500 mcg STK-MED ONCE .ROUTE ; Start 01/20/17 at 08:42; Stop 01/20/17 at 08:43; Status DC Cefazolin Sodium/ Dextrose 50 ml @ As Directed STK-MED ONCE .ROUTE Last administered on 01/20/17 13:34; Start 01/20/17 at 13:14; Stop 01/20/17 at 13:15; Status DC Potassium Chloride/Sodium Chloride (NS + KCl 20 Meq Inj) 1,000 ml @ 100 mls/hr Q10H IV Last administered on 01/24/17 08:33; Start 01/20/17 at 14:55; Stop at 18:46; Status DC IV Flush (NS Flush) 2 ml UNSCH PRN IVF FLUSH AFTER USING IV ACCESS; Start at 15:00 IV Flush 2 ml 2 ml BID IVF Last administered on 01/25/17 09:00; Start 01/20/17 at 15:00 Cefazolin Sodium/ Dextrose (Ancef 2 Gm Premix) 50 ml @ 100 mls/hr Q8H IV Last administered on 01/21/17 12:34; Start 01/20/17 at 21:00; Stop 01/21/17 at 13:29; Status DC Docusate Sodium (Colace) 100 mg BID PO Last administered on 01/25/17 08:50; Start 01/20/17 at 15:00 Magnesium Hydroxide (Milk Of Magnesia Liq) 30 ml DAILY PRN PO CONSTIPATION Last administered on 01/24/17 15:23; Start 01/20/17 at 15:00 Pantoprazole Sodium (Protonix Inj) 40 mg DAILY IVP Last administered on 09:10; Start 01/20/17 at 15:00; Stop 01/23/17 at 08:05; Status DC Ondansetron HCl (Zofran Inj) 4 mg Q6H PRN IV NAUSEA OR VOMITING; Start 01/20/17 at 15:00 Cyclobenzaprine HCl (Flexeril) 10 mg Q8H PRN PO MUSCLE SPASM Last administered on 01/25/17 00:54; Start 01/20/17 at 15:00 Clonidine (Catapres) 0.1 mg Q6H PRN PO/NG SYS BP GREATER THAN 170 MMHG; Start 01/20/17 at 15:00 Acetaminophen (Tylenol) 650 mg Q4H PRN PO TEMPERATURE > 101.5 F; Start 01/20/17 at 15:00 Menthol ([place] Jason) 1 lozenge UNSCH PRN BUCCAL SORE THROAT; Start 01/20/17 at 15 :00 Zolpidem Tartrate (Ambien) 5 mg HS PRN PO INSOMNIA Last administered on 00:54; Start 01/20/17 at 15:00 Albuterol Sulfate (Albuterol Neb) 2.5 mg Q4HR NEB PRN INH WHEEZING; Start at 15:00 Naloxone HCl (Narcan Inj) 0.4 mg UNSCH PRN IV RESPIRATORY RATE LESS THAN 10; Start 01/20/17 at 15:00 Diphenhydramine HCl (Benadryl Inj) 25 mg Q6H PRN IV ITCHING Last administered on 01/22/17 02:38; Start 01/20/17 at 15:00 Hydromorphone HCl (Dilaudid MARINE UNDERWRITER Inj) 6 mg UNSCH IV Last administered on 09:34; Start 01/20/17 at 15:00; Stop 01/23/17 at 14:10; Status DC MARINE UNDERWRITER Dosage Infused (Pha) 1 Q8HR .XX Last administered on 01/23/17 17:00; Start 01/20/17 at 15:00 Buspirone HCl (Buspar) 10 mg BID PO Last administered on 01/25/17 08:50; Start 01/20/17 at 21:00 Gabapentin (Neurontin) 100 mg TID PO Last administered on 01/21/17 17:16; Start 01/20/17 at 18:00; Stop 01/22/17 at 07:23; Status DC Budesonide/ Formoterol Fumarate (Symbicort 160-4.5 Inh) 2 puff BID INH Last administered on 01/25/17 09:00; Start 01/20/17 at 21:00 Fluticasone/ Vilanterol (Breo Ellipta 100-25 Inh) 1 puff DAILY INH Last administered on 01/25/17 09:00; Start 01/21/17 at 09:00 Miscellaneous Information ALL NURSING DEPARTME... UNSCH PRN .XX SEE LABEL COMMENTS; Start 01/20/17 at 14:59; Stop 01/21/17 at 14:58; Status DC Fentanyl Citrate (fentaNYL INJ) 250 mcg STK-MED ONCE .ROUTE ; Start 01/20/17 at 14:28; Stop 01/20/17 at 15:33; Status DC Meperidine HCl (*DEMEROL INJ PERIprocedural ONLY) 25 mg STK-MED ONCE .ROUTE Last administered on 01/20/17 15:21; Start 01/20/17 at 15:21; Stop 01/20/17 at 15: 38; Status DC Hydromorphone HCl (*DILAUDID PF INJ PERIprocedural ONLY) 1 mg STK-MED ONCE .ROUTE Last administered on 01/20/17 15:32; Start 01/20/17 at 15:32; Stop at 15:39; Status DC Hydromorphone HCl (*DILAUDID PF INJ PERIprocedural ONLY) 1 mg STK-MED ONCE .ROUTE Last administered on 01/20/17 15:44; Start 01/20/17 at 15:44; Stop at 15:45; Status DC Hydromorphone HCl (*DILAUDID PF INJ PERIprocedural ONLY) 1 mg STK-MED ONCE .ROUTE Last administered on 01/20/17 16:08; Start 01/20/17 at 16:08; Stop at 16:09; Status DC Hydroxyzine HCl (*VISTARIL INJ PERIprocedural ONLY) 25 mg STK-MED ONCE IM Last administered on 01/20/17 16:18; Start 01/20/17 at 16:18; Stop 01/20/17 at 16:19; Status DC Oxycodone/ Acetaminophen (Percocet 10-325 Mg) 1 tab Q4H PRN PO PAIN SCALE 1 TO 10 Last administered on 01/25/17 13:17; Start 01/20/17 at 21:45 Enoxaparin Sodium (Lovenox Inj) 40 mg Q24H SQ Last administered on 01/25/17 08 :51; Start 01/22/17 at 09:00 Ketorolac Tromethamine (Toradol Inj) 30 mg NOW ONCE IM Last administered on 07:39; Start 01/22/17 at 07:30; Stop 01/22/17 at 07:31; Status DC Gabapentin (Neurontin) 600 mg TID PO Last administered on 01/25/17 13:17; Start 01/22/17 at 09:00 Pantoprazole Sodium (Protonix) 40 mg DAILY PO Last administered on 01/25/17 08 :51; Start 01/23/17 at 09:00 Oxycodone HCl (OxyCONTIN CR) 40 mg BID PO Last administered on 01/25/17 08:58 ; Start 01/23/17 at 21:00 Oxycodone/ Acetaminophen (Percocet 10-325 Mg) 1 tab Q4HR PO ; Start 01/23/17 at 16:00; Stop 01/23/17 at 16:00; Status DC Dexamethasone Sodium Phosphate (Decadron Inj) 4 mg Q8H IV PUSH Last administered on 01/25/17t 11:55; Start 01/24/17 at 18:45; Stop 01/26/17 at 10:46 Date of Insertion: Jan 21, 2017 A/P Assessment and Plan Lower Back Pain Post Laminectomy -Symptoms improving. -Continue current regimen per neurosurgeon. Discharge Planning Patient medically stable for discharge today. Mitali Ambriz MD Jan 25, 2017 16:01
[2017-01-25 16:06] VITALS: BP 118/81; PULSE 97; RESP 20; TEMP 95.6; O2SAT 96
[2017-02-16] MEDS ORDERED: ZANA4CAP PO (11:00)
[2017-02-16] MEDS ORDERED: GABA600T PO (11:00)
[2017-02-17] MEDS ORDERED: OXYC1TAB36 PO (09:36)
== END 2017-01-25 17:39 | disposition home health service (06) | DRG 460 ==
LOC: HSDI 01-20 06:43 → N05A 01-20 17:05
PROVIDERS: ADMIT Neurological Surgery; ATTEND Neurological Surgery
PROC: 0ST20ZZ Resection of Lumbar Vertebral Disc, Open Approach (ICD-10-PCS; 2017-01-20)
PROC: 0SG00A1 (ICD-10-PCS; principal; 2017-01-20 08:47)
DX: M43.16 Spondylolisthesis, lumbar region (principal); F32.9 Major depressive disorder, single episode, unspecified; M54.16 Radiculopathy, lumbar region; J44.9 Chronic obstructive pulmonary disease, unspecified; G89.29 Other chronic pain; F17.210 Nicotine dependence, cigarettes, uncomplicated; G89.18 Other acute postprocedural pain; D72.829 Elevated white blood cell count, unspecified
CPT/HCPCS: 72100; 76000; 80048; 85025; 85027; 86850; 86900; 86901; 94150; C1713; C9113; J0131; J0690; J1100; J1170; J1200; J1580; J1650; J1885; J2175; J2250; J2370; J2405; J3010; J3370; J3410; J3480; J7050; J7120; L0200; L0484

== ENCOUNTER → 2017-01-18 | Outpatient (CLI) | payer OTHER ==
[~2017-01-18] MED LIST changes: +ADVA500A INH; +GABA600T PO; +OXYC1TAB36 PO; +PERC5TAB12 PO; +WALKER WHEELS/F1 MIS; +ZANA4CAP PO
[2017-01-18 13:27] LABS: BLOOD, URINE NEG (NEG); GLUCOSE,URINE NEG (NEG); KETONE, URINE NEG (NEG); NITRITE,URINE NEG (NEG); URINE COLOR YELLOW (YELLW/STRAW)
[2017-01-18 13:28] LABS: COMMENT (UR) CULT NOT INDICATED; CULTURE IF INDICATED CULT NOT INDICATED
== END ==
LOC: CPRE 11:38
PROVIDERS: ATTEND Neurological Surgery
DX: Z01.812 Encounter for preprocedural laboratory examination (principal); M43.10 Spondylolisthesis, site unspecified
CPT/HCPCS: 81001

== ENCOUNTER 2017-02-07 13:49 | Emergency (ER) | payer OTHER ==
[~2017-02-07] VITALS: Ht 160 cm; Wt 59.0 kg
[~2017-02-07 13:49] MED LIST changes: +ADVA500A INH; +GABA600T PO; -NAPR1TAB34 PO; +OXYC1TAB36 PO; -OXYC20TA17 PO; -PERC10TA27 PO; -UMEC1INH INH; +WALKER WHEELS/F1 MIS; +ZANA4CAP PO
[2017-02-07 13:51] VITALS: BP 135/80; PULSE 84; RESP 20; TEMP 98.2; O2SAT 96
[2017-02-07] MEDS ORDERED: SODIUM CHLOR 0.9% 1000 ML INJ 1,000 ML IV ONE (14:30)
[2017-02-07] MEDS ORDERED: HYDROmorphone HCL PF 1 MG/ML VIAL IV PUSH ONE ×2 (14:30→16:00)
[2017-02-07 15:10] LABS: AUTOMATED NEUTROPHIL # 9.4 TH/MM3 (1.8-7.7); BASOPHIL # 0.2 TH/MM3 (0-0.2); BASOPHIL % 1.2 % (0.0-2.0); EOSINOPHIL # 0.4 TH/MM3 (0-0.4); EOSINOPHIL % 2.9 % (0.0-4.0); HEMATOCRIT 40.1 % (39.0-51.0); HEMO FLAGS DIFF FINAL; LYMPH % 23.9 % (9.0-44.0); LYMPHOCYTE # 3.4 TH/MM3 (1.0-4.8); MEAN CELL VOLUME 94.5 FL (80.0-100.0); MEAN CORPUSCULAR HEMOGLOBIN 31.5 PG (27.0-34.0); MEAN CORPUSCULAR HGB CONC 33.3 % (32.0-36.0); MONO % 5.1 % (0.0-8.0); NEUT % 66.9 % (16.0-70.0); PLATELET COUNT 387 TH/MM3 (150-450); RED BLOOD COUNT 4.24 MIL/MM3 (4.50-5.90); RED CELL DISTRIBUTION WIDTH 14.4 % (11.6-17.2)
[2017-02-07 15:20] LABS: APTT (PATIENT) 29.2 SEC (24.3-30.1); INTERNATIONAL NORMALIZED RATIO 0.9 RATIO; PROTHROMBIN TIME - PATIENT 10.2 SEC (9.8-11.6)
[2017-02-07] MEDS ORDERED: GADODIAMIDE PF 287 MG/ML 5 ML VIAL (for RAD MRI) IV ONE (15:20)
[2017-02-07 15:25] LABS: BICARBONATE 27.8 MEQ/L (21.0-32.0); POTASSIUM 4.1 MEQ/L (3.5-5.1)
[2017-02-07 15:47] VITALS: BP 113/75; PULSE 92; RESP 18; O2SAT 100
--- NOTE | 2017-02-07 15:59 | RADRPT ---
EXAM DATE/TIME: 02/07/2017 14:56 [facility] COMPARISON: MRI LUMBAR SPINE W & W/O CONTRAST, December 24, 2016, 9:06. INDICATIONS : Abscess. 2 weeks status post laminectomy. CONTRAST: 12 cc Omniscan (gadodiamide) IV MEDICAL HISTORY : None. SURGICAL HISTORY : Fusion, lumbar. Discectomy, lumbar. ENCOUNTER: Initial ACUITY: 1 week PAIN SCORE: 5/10 LOCATION: [facility] TECHNIQUE: Multiplanar multisequence MRI of the lumbar spine was performed with and without contrast. FINDINGS: The most caudal appearing lumbar vertebra is numbered as L5. There is normal alignment of the verteb ral bodies of lumbar spine. There are degenerative changes in the anterior endplates at the L2-3 lev el similar to preoperative exam. The conus is at the level of T. 12. On the postcontrast images, th ere is some minimal enhancement seen in the marrow of L2, L3, similar distribution to the preoperativ e exam. There is also some minimal enhancement in the right posterior musculature at the L2-L4 level , expected postsurgical finding. T12-L1: The thecal sac has a normal diameter. No evidence of disc bulge or protrusion. The neural foramina are patent bilaterally. L1-L2: Broad-based protrusion of the disc is slightly more prominent on the preoperative exam and causes a g reater degree of flattening the ventral margin of the thecal sac. No significant extension into the neural foramina and no evidence of neural impingement. L2-L3: Bilateral transpedicular screws at L3 and orthotopic position. There is minimal flattening of ventra l margin of the thecal sac. L3-L4: Bilateral transpedicular screws at L4 in orthotopic position. Bilateral laminectomy. The thecal sac is normal in configuration and has smooth convex lateral and posterior margins.There is a focal flui d collection which tracks along the right laminectomy site, is uniformly bright on T2-weighted images cover measures 3.1 x 1.2 cm, and does not demonstrate any peripheral enhancement on the postcontrast images. This fluid collection does not deform the dorsal lateral margin of the thecal sac L4-L5: Broad-based bulging of the disc and ventral margin of the thecal sac. There is extension into the ne ural foramen bilaterally and loss of fat about the nerve root within the neural foramen on the left s snow. The neural impingement a similar appearance to prior exam. L5-S1: The thecal sac has a normal diameter. No evidence of disc bulge or protrusion. The neural foramina are patent bilaterally. CONCLUSION: There is a focal fluid collection at the right laminectomy site at L3-4 which measures up to 3 cm. N o enhancement within and no wall enhancement about this fluid collection. This does not impress upon the thecal sac. Differential considerations include a postoperative seroma and abscess. Michael Llanos MD on February 07, 2017 at 15:45 Board Certified Radiologist. This report was verified electronically.
[2017-02-07] MEDS ORDERED: PERC5TAB12 PO (16:50)
--- NOTE | 2017-02-07 16:51 | PD ---
HPI Chief Complaint: Fever Time Seen by Provider: 14:13 Travel History International Travel<30 days: No Contact w/Intl Traveler<30days: No Traveled to known affect area: No History of Present Illness HPI Patient is a 56-year-old male comes in complaining of back pain and swelling. He had a laminectomy performed [address] Molina. He says he was doing well until last night when he started to have increased pain and he felt like the right side of his back was swollen. He says he has some numbness to the outside of both legs, but this has been going on for a little while. He denies any incontinence or muscle weakness. His reports that he felt warm at home , but he has not had any documented fever. He took 2 Percocet at home prior to coming in and is afebrile here. He denies any difficulty urinating. PFSH Past Medical History Autoimmune Disease: No Cancer: No Cardiovascular Problems: No COPD: Yes Diabetes: No Endocrine: No Gastrointestinal Disorders: No Genitourinary: No Hepatitis: No Hiatal Hernia: No Hypertension: No Immune Disorder: No Implanted Vascular Access Dvce: No Medical other: No Musculoskeletal: Yes (arthritis, compressed disks in lumbar) Neurologic: No Psychiatric: No Reproductive: No Respiratory: Yes (copd/emphysema) Thyroid Disease: No Past Surgical History Abdominal Surgery: Yes (HERNIA REPAIR X3) AICD: No Arteriovenous Shunt: No Body Medical Devices: NONE PER PT Cardiac Surgery: No Ear Surgery: No Endocrine Surgery: No Eye Surgery: No Genitourinary Surgery: No Gynecologic Surgery: No Insulin Pump: No Joint Replacement: No Neurologic Surgery: Yes (Spinal sx X 2, L-4, L-5 INSTRUMENTAL FIAXTION) Oral Surgery: No Pacemaker: No Thoracic Surgery: No Other Surgery: Yes Social History Alcohol Use: Yes Tobacco Use: Yes Substance Use: No Allergies-Medications (Allergen,Severity, Reaction): Coded Allergies: Codeine (Verified Allergy, Severe, Anaphylaxis, 02/07/17) Morphine (Verified Allergy, Severe, Nausea/Vomiting, 02/07/17) Reported Meds & Prescriptions Reported Meds & Active Scripts Active Percocet (Oxycodone-Acetaminophen) 5-325 mg Tab 1 Tab PO Q4H PRN Walker with Front Wheels (Device) 1 Mis Mis 1 Ea .ROUTE DIRECTED Zanaflex (Tizanidine HCl) 4 Mg Cap 4 Mg PO TID Gabapentin 600 Mg Tab 600 Mg PO BID Oxycodone-Acetaminophen 10-325 mg Tab 2 Tab PO Q12HR PRN Walker Rolling/GetGo (Device) 1 Mis Mis 1 Ea .ROUTE DIRECTED Gabapentin 100 Mg Cap 100 Mg PO TID 30 Days Reported Advair Diskus Inh (Fluticasone-Salmeterol Inh) 500-50 Mcg/Blist Aer 1 Puff INH DAILY Rinse mouth after use. Breo Ellipta Inh (Fluticasone/Vilanterol) 200-25 Mcg/Act Inh 1 Puff INH DAILY Use daily at the same time. Buspirone (Buspirone HCl) 10 Mg Tab 10 Mg PO BID Review of Systems Except as stated in HPI: all other systems reviewed are Neg General / Constitutional: No: Chills HENT: No: Headaches, Lightheadedness Cardiovascular: No: Chest Pain or Discomfort Respiratory: No: Shortness of Breath Gastrointestinal: No: Nausea, Vomiting, Abdominal Pain Genitourinary: No: Dysuria, Decreased Urinary Output, Oliguria Musculoskeletal: Positive: Pain Skin: No Change in Pigmentation Neurologic: Positive: Sensory Disturbance, No: Weakness, Dizziness Physical Exam Narrative GENERAL: Awake and alert, in no acute distress. SKIN: Focused skin assessment warm/dry. Surgical wound to his back is healing, there is no erythema, no leakage of fluids, no fluctuance. No warmth to the touch. HEAD: Atraumatic. Normocephalic. EYES: Pupils equal and round. No scleral icterus. ENT: Mucous membranes pink and moist. NECK: Trachea midline. No JVD. CARDIOVASCULAR: Regular rate and rhythm. No murmur appreciated. RESPIRATORY: No accessory muscle use. Clear to auscultation. Breath sounds equal bilaterally. GASTROINTESTINAL: Abdomen soft, non-tender, nondistended. No CVA tenderness. MUSCULOSKELETAL: No obvious deformities. No clubbing. No cyanosis. No edema. NEUROLOGICAL: Awake and alert. No obvious cranial nerve deficits. Motor grossly within normal limits. Normal speech. Ambulating without difficulty. No saddle anesthesia. PSYCHIATRIC: Appropriate mood and affect; insight and judgment normal. Data Data Last Documented VS Vital Signs Date Time Temp Pulse Resp B/P Pulse Ox O2 Delivery O2 Flow Rate FiO2 02/07/17 15:47 92 18 113/75 100 Room Air 02/07/17 13:51 98.2 Orders Complete Blood Count With Diff (02/07/17 14:22) Basic Metabolic Panel (Bmp) (02/07/17 14:22) Act Partial Throm Time (Ptt) (02/07/17 14:22) Prothrombin Time / Inr (Pt) (02/07/17 14:22) Urinalysis - C+S If Indicated (02/07/17 14:22) Mri L Spine W&W/O Contrast (02/07/17 ) Lactic Acid (02/07/17 14:22) Westergren Sedimentation Rate (02/07/17 14:22) Sodium Chlor 0.9% 1000 Ml Inj (Ns 1000 M (02/07/17 14:30) Hydromorphone Pf Inj (Dilaudid Pf Inj) (02/07/17 14:30) Gadodiamide Pf Inj (Omniscan Pf Inj) (02/07/17 15:20) Hydromorphone Pf Inj (Dilaudid Pf Inj) (02/07/17 16:00) Labs Laboratory Tests Test 02/07/17 02/07/17 14:35 16:23 White Blood Count 14.0 TH/MM3 Red Blood Count 4.24 MIL/MM3 Hemoglobin 13.3 GM/DL Hematocrit 40.1 % Mean Corpuscular Volume 94.5 FL Mean Corpuscular Hemoglobin 31.5 PG Mean Corpuscular Hemoglobin 33.3 % Concent Red Cell Distribution Width 14.4 % Platelet Count 387 TH/MM3 Mean Platelet Volume 6.5 FL Neutrophils (%) (Auto) 66.9 % Lymphocytes (%) (Auto) 23.9 % Monocytes (%) (Auto) 5.1 % Eosinophils (%) (Auto) 2.9 % Basophils (%) (Auto) 1.2 % Neutrophils # (Auto) 9.4 TH/MM3 Lymphocytes # (Auto) 3.4 TH/MM3 Monocytes # (Auto) 0.7 TH/MM3 Eosinophils # (Auto) 0.4 TH/MM3 Basophils # (Auto) 0.2 TH/MM3 CBC Comment DIFF FINAL Differential Comment Erythrocyte Sedimentation Rate 10 mm/hr Prothrombin Time 10.2 SEC Prothromb Time International 0.9 RATIO Ratio Activated Partial 29.2 SEC Thromboplast Time Sodium Level 138 MEQ/L Potassium Level 4.1 MEQ/L Chloride Level 105 MEQ/L Carbon Dioxide Level 27.8 MEQ/L Anion Gap 5 MEQ/L Blood Urea Nitrogen 13 MG/DL Creatinine 0.83 MG/DL Estimat Glomerular Filtration 95 ML/MIN Rate Random Glucose 103 MG/DL Lactic Acid Level 1.2 mmol/L Calcium Level 9.1 MG/DL Urine Color YELLOW Urine Turbidity CLEAR Urine pH 6.0 Urine Specific [place] 1.039 Urine Protein TRACE mg/dL Urine Glucose (UA) NEG mg/dL Urine Ketones NEG mg/dL Urine Occult Blood NEG Urine Nitrite NEG Urine Bilirubin NEG Urine Urobilinogen 2.0 MG/DL Urine Leukocyte Esterase NEG Urine RBC LESS THAN 1 /hpf Urine WBC LESS THAN 1 /hpf Urine Squamous Epithelial <1 /hpf Cells Urine Mucus FEW /lpf Microscopic Urinalysis Comment CULT NOT INDICATED MDM Medical Decision Making Medical Screen Exam Complete: Yes Emergency Medical Condition: Yes Medical Record Reviewed: Yes Differential Diagnosis Epidural abscess versus surgical site complication versus muscle strain Narrative Course Patient is a 56-year-old male who comes in complaining of increasing back pain status post laminectomy. Exam shows well healed surgical wound, no signs of infection at the surgical site. He is mostly tender in the right side of his back. IV established, labs sent. Labs show a white blood cell count 14. ESR is 10. All other labs are within normal limits. Patient given Dilaudid for pain. MRI of the lumbar spine is performed which shows a fluid collection near the laminectomy site. I spoke with Dr. Castellanos of neurosurgery who reviewed the films. He says he feels this is not an abscess in the patient is safe for discharge at this time. He advises follow-up with Dr. Molina and pain control. Patient does report increased activity lately, which may be partly responsible for his increased pain. I informed the patient of the results. I advised him of things to watch for including documented fever, changes to the surgical site, worsening pain or neurologic symptoms. He is comfortable with discharge at this time. He is requesting a prescription for a few more pain pills. I advised they call Dr. Molina tomorrow and request an earlier follow-up. They're comfortable this plan at this time. Diagnosis Primary Impression: Lower back pain Qualified Code: M54.5 - Right-sided low back pain without sciatica, unspecified chronicity Patient Instructions: Back Pain (ED), General Instructions, Laminectomy (DC) Additional Instructions: Follow up with Dr. Molina, call the office tomorrow. Return to the ED for any worsening symptoms, specifically if you have a temperature at or above 100.4, redness or warmth over your surgical site or any leakage of fluids from the site , or any neurologic symptoms. Take pain medicine as needed. Scripts Oxycodone-Acetaminophen (Percocet)5-325 mg Tab1 Tab PO Q4H PRN (PAIN) #12 TAB Ref 0 Prov:Alexandra Shoemaker MD 02/07/17 Disposition: 01 DISCHARGE HOME Condition: Stable Alexandra Shoemaker MD Feb 07, 2017 16:50
[2017-02-07 16:53] LABS: BLOOD, URINE NEG (NEG); COMMENT (UR) CULT NOT INDICATED; CULTURE IF INDICATED CULT NOT INDICATED; GLUCOSE,URINE NEG (NEG); KETONE, URINE NEG (NEG); MUCUS URINE FEW /lpf (OCC); NITRITE,URINE NEG (NEG); SQUAMOUS EPITHELIAL CELL URINE <1 /hpf (0-5); URINE COLOR YELLOW (YELLW/STRAW)
[2017-02-16] MEDS ORDERED: ZANA4CAP PO (11:00)
[2017-02-16] MEDS ORDERED: GABA600T PO (11:00)
[2017-02-17] MEDS ORDERED: OXYC1TAB36 PO (09:36)
== END 2017-02-07 18:05 | disposition home or self-care (01) ==
LOC: NEPE 13:49
DX: M54.5 Low back pain (principal); Z72.0 Tobacco use
CPT/HCPCS: 72158; 80048; 81001; 83605; 85025; 85610; 85652; 85730; 96361; 96374; 96376; 99284; A9579; J1170; J7030